=== PATIENT | male | born 1960 | race Caucasian/White ===

== ENCOUNTER → 2025-02-24 | Outpatient (CLI) | payer OTHER ==
[2025-02-24 14:58] LABS: Basophils # (A) 0.05 X 10*3/uL (0.00-0.10); Basophils % (A) 0.9 %; Eosinophils # (A) 0 X 10*3/uL (0.04-0.35); Eosinophils % (A) 0 %; HGB 14.8 g/dL (13.0-17.0); Lymphocytes # (A) 1.71 X 10*3/uL (0.90-5.00); Lymphocytes % (A) 30.4 %; MCH 30.1 pg (27.0-32.0); MCHC 33.6 g/dL (32.0-37.0); MCV 89.6 FL (80.0-97.0); Mean Platelet Volume 9.6 FL (9.5-12.2); Monocytes # (A) 0.52 X 10*3/uL (0.20-1.00); Monocytes % (A) 9.2 %; NRBC Per 100 WBC 0 X 10*3/uL (0.00-0.01); Neutrophils # (A) 3.34 X 10*3/uL (1.80-7.70); Neutrophils % (A) 59.3 %; Platelet Count 299 X 10*3/uL (140-440); RBC 4.91 X 10*6/uL (4.40-5.60); RDW 11.7 % (11.5-14.5); WBC 5.63 X 10*3/uL (4.50-10.00)
[2025-02-24 16:07] LABS: LDL Cholesterol,Calculated 115.7 mg/dL (0.0-131.0); Prostate Specific Antigen 7.57 ng/mL (0.000-4.500); VLDL Calculation 18.42 mg/dL (5.00-40.00)
[2025-02-24 16:31] LABS: ALT 18 U/L (10-49); AST 25 U/L (14-35); Albumin 4.4 g/dL (3.8-4.9); Alkaline Phosphatase 60 U/L (41-126); BUN/Creat Ratio 15.08 Ratio (12.00-20.00); Blood Urea Nitrogen 19.6 mg/dL (9.0-27.0); Calcium 9.5 mg/dL (8.7-10.3); Carbon Dioxide 25.7 mmol/L (21.6-31.8); Chloride 109 mmol/L (96-109); Globulin 2.1 g/dL (1.6-3.3); Glucose 98 mg/dL (70-110); Potassium 4.1 mmol/L (3.5-5.5); Sodium 150 mmol/L (135-145); Total Bilirubin 2.5 mg/dL (0.3-1.2); Total Protein 6.5 g/dL (6.2-8.2)
== END | disposition home or self-care (01) ==
LOC: LABWHC1 10:59
PROVIDERS: ATTEND Internal Medicine Critical Care Medicine
DX: Z00.00 Encounter for general adult medical examination without abnormal findings (principal); R63.4 Abnormal weight loss; R13.10 Dysphagia, unspecified
CPT/HCPCS: 36415; 80053; 80061; 82306; 82378; 83036; 84153; 84403; 85025

== ENCOUNTER → 2025-03-01 | Outpatient (CLI) | payer OTHER ==
--- NOTE | 2025-03-02 09:09 | CT ---
EXAMINATION TYPE: CT abdomen pelvis w con DATE OF EXAM: 03/01/2025 COMPARISON: NONE CLINICAL INDICATION: Male, 64 years old with history of R63.4 ABNORMAL WEIGHT LOSS, 40 + weightloss x 2 months. Abdominal discomfort, TECHNIQUE: CT scan of the abdomen and pelvis is performed with IV Contrast, patient injected with 100 ml mL of I sovue 300., (none if empty) Oral contrast used: with Oral Contrast (none if empty) CT DLP: 514.8 mGycm, Automated exposure control for dose reduction was used. FINDINGS: LUNG BASES: No significant abnormality is appreciated. LIVER/GB: No significant abnormality is appreciated. PANCREAS: No significant abnormality is seen. SPLEEN: No significant abnormality is seen. ADRENALS: No significant abnormality is seen. KIDNEYS: No significant abnormality is seen. BOWEL: Oral contrast reaches level of the transverse colon. No abnormal small or large bowel dilatati on is seen. Normal contrast-filled appendix. PROSTATE/SEMINAL VESICLES: Enlarged prostate consistent with BPH is present. LYMPH NODES: No greater than 1cm abdominal or pelvic lymph nodes are appreciated. OSSEOUS STRUCTURES: Slight grade 1 retrolisthesis of L2 on L3, L3 on L4, and L4 on L5. Multilevel mod erate disc space narrowing is present. OTHER: Tortuous course to the abdominal aorta with mild peripheral calcified plaque. IMPRESSION: No significant acute finding is seen to account for patient's clinical symptoms of abdom inal discomfort. No suspicious mass or adenopathy is seen to suggest malignant neoplasm. Enlarged pro state consistent with BPH is present [facility], , 03/02/2025 9:07 AM
== END | disposition home or self-care (01) ==
LOC: RADCTMAIN 15:07
PROVIDERS: ATTEND Internal Medicine Critical Care Medicine
DX: N40.0 Benign prostatic hyperplasia without lower urinary tract symptoms (principal); R63.4 Abnormal weight loss
CPT/HCPCS: 74177; Q9967

== ENCOUNTER → 2025-03-05 | Outpatient (CLI) | payer OTHER | END | disposition home or self-care (01) | LOC: LABWHC1 13:57 | PROVIDERS: ATTEND Urology | DX: R97.20 Elevated prostate specific antigen [PSA] (principal) | CPT/HCPCS: 36415; 84153 ==

== ENCOUNTER 2025-03-17 07:54 | Day surgery (SDC) | payer OTHER ==
[~2025-03-17 07:54] MED LIST: LIDOCAINE 1% (10MG/ML) FOR IV START INTRADERMA PRN
[2025-03-17] MEDS: IV FLUID CONTINUATION 1,000 ML IV ONE (08:15)
[2025-03-17 08:25] VITALS: RESP 16; TEMP 97.6
[2025-03-17] MEDS: LACTATED RINGERS 1,000 ML IV SCH (08:28)
[2025-03-17] MEDS ORDERED: LIDOCAINE 2% (PF) 20 MG/ML 5 ML VIAL ONE (08:40)
[2025-03-17] MEDS ORDERED: PROPOFOL 10 MG/ML 20 ML VIAL IV ONE (08:40)
--- NOTE | 2025-03-17 09:09 | P.PCN ---
Date of Procedure: 03/17/25 Procedure(s) Performed: Brief history: Patient is a pleasant 64-year-old white male scheduled for an elective upper endoscopy as well as colonoscopy as a part of evaluation of progressive dysphagia to solids for the last 3 months duration associated with weight loss of almost 50 pounds. He is also scheduled for colonoscopy as a part of screening for colorectal neoplasia Procedure performed: Esophagogastroduodenoscopy with biopsy Colonoscopy with biopsy Preoperative diagnosis: Progressive dysphagia to solids for 3 months duration associate with weight loss of 50 pound Screening for colon cancer Anesthesia: MAC Procedure: After informed consent was obtained from the patient was brought into the endoscopy unit and IV sedation was administered by anesthesia under continuous monitoring. Initially upper endoscopy was done. The Olympus GF 160 video endoscope was inserted inserted into the mouth and esophagus intubated without any difficulty and was gradually advanced into the distal esophagus where there was an ulcerated circumferential mass identified with significant luminal narrowing. The scope was gently advanced into the stomach and duodenum and carefully examined. The bulb and second part of the duodenum appeared normal. The scope was then withdrawn into the stomach adequately insufflated with air and upon careful examination the antrum and body, cardia and fundus appeared normal. The scope was then withdrawn into the esophagus. The GE junction was located at 41 cm to the incisors. There was a circumferential ulcerated mass noted in the distal esophagus extending from 36 to 41 cm from the incisors and multiple biopsies were done from this area. Rest of the esophagus appeared normal. Patient tolerated the procedure well. At this time the patient continued to remain sedation. Initial digital rectal examination was normal. Olympus CF 160 video colonoscope was then inserted into the rectum and gradually advanced to the cecum without any difficulty. Careful examination was performed as the scope was gradually being withdrawn. The prep was excellent. The cecum had a 3 mm polyp that was removed by cold biopsy. Rest of the, ascending colon, transverse colon, descending colon, sigmoid colon and rectum appeared normal. In the rectum there was a 3 mm polyp that was removed by cold biopsy. Retroflexion was performed in the rectum and no lesions were noted. Patient tolerated the procedure well. Impression: 1. Upper endoscopy revealed circumferential ulcerated distal esophageal mass extending from 36 to 41 cm from the incisors with significant luminal narrowing s/p multiple biopsies 2. Colonoscopy revealed a 3 mm cecal polyp and a 4 mm rectal polyp that was removed by cold biopsy. Recommendations: Findings of this examination were discussed with the patient as well as his family. He was advised to follow with the biopsy results. Follow-up in the office in 4 to 5 days.
[2025-03-17 09:39] VITALS: BP 122/75; PULSE 72
== END 2025-03-17 10:39 | disposition home or self-care (01) ==
LOC: ORWHC2ENDO 07:54
PROVIDERS: ATTEND Internal Medicine Gastroenterology
DX: C15.5 Malignant neoplasm of lower third of esophagus (principal); Z12.11 Encounter for screening for malignant neoplasm of colon; K62.1 Rectal polyp; K51.40 Inflammatory polyps of colon without complications; Z79.899 Other long term (current) drug therapy; Z88.0 Allergy status to penicillin
CPT/HCPCS: 88305; 88342; 45380; 43239; J2704; J2003; 88341

== ENCOUNTER 2025-03-21 05:59 | Inpatient (IN) | payer OTHER ==
--- NOTE | 2025-03-21 06:31 | ED ---
General Adult HPI - General Chief complaint: ENT Stated complaint: Difficulty swallowing, not eating Time Seen by Provider: 03/21/25 06:10 Source: patient, RN notes reviewed, old records reviewed Mode of arrival: ambulatory Limitations: no limitations - History of Present Illness Initial comments: Patient is a 64-year-old male who presents emergency department for evaluation for esophageal mass. Recently had EGD and colonoscopy done by Dr. Banegas outpatient which revealed an esophageal mass. Was biopsied which showed an adenocarcinoma. Patient has been following up with Dr. Maldonado due to recent dysphagia for the last 3 to 4 months as well as approximately 50 pounds of weight loss. Cancer is a recent diagnosis. Patient is aware of his diagnosis as his brother was contacted by Dr. Maldonado last night. He denies any abdominal pain, chest pain, shortness of breath. He has no other acute complaints at this time. No significant past medical history. He endorses progressively worsening dysphagia and odynophagia over the last few months with worsening especially lately which is what prompted him to follow-up with Dr. Maldonado for evaluation. - Related Data Home Medications Medication Instructions Recorded Confirmed Omeprazole Magnesium [PriLOSEC OTC] 20 mg PO DAILY 03/11/25 03/21/25 Allergies Allergy/AdvReac Type Severity Reaction Status Date / Time Penicillins Allergy Rash/Hives Verified 03/21/25 09:01 Review of Systems ROS Statement: Those systems with pertinent positive or pertinent negative responses have been documented in the HPI. Review of Systems: CONST: Denies fever EYES: Denies blurry vision ENT: Denies nasal congestion C/V: Denies Chest pain RESP: Denies shortness of breath GI: Denies abdominal pain : Denies dysuria SKIN: Denies rash. MSK: Denies joint pain. NEURO: Denies headache ROS Other: All systems not noted in ROS Statement are negative. Past Medical History Additional Past Medical History / Comment(s): PSA elevated; pt. c/o 48 lb weight loss x 2-3 months, dysphagia, weakness, & fatigue. History of Any Multi-Drug Resistant Organisms: None Reported Additional Past Surgical History / Comment(s): left cheek surgery age 21's Past Anesthesia/Blood Transfusion Reactions: No Reported Reaction Past Psychological History: No Psychological Hx Reported Smoking Status: Never smoker Past Alcohol Use History: None Reported Past Drug Use History: None Reported - Past Family History Father Additional Family Medical History / Comment(s): pancreatic cancer General Exam - General Exam Comments Initial Comments: General: Clinically appears somewhat malnourished, as he has lost significant amount of weight over the last few months. HEAD: Normal with no signs of head trauma. EYES: EOMI ENT: Hearing grossly intact, normal oropharynx. Mildly dry mucous membranes RESPIRATORY: Clear breath sounds bilaterally. No wheezes, rales, or rhonchi. C/V: Regular rate and rhythm. S1 and S2 auscultated, no edema, peripheral pulses 2+ and intact throughout ABD: Abd is soft, nontender, nondistended EXT: Normal range of motion, no obvious deformity SKIN: No rashes or lesions observed on exposed skin. NEURO: Alert and oriented x 4. Limitations: no limitations Course Vital Signs 03/21/25 03/21/25 03/21/25 06:02 10:13 13:05 Temperature 97.9 F 98.4 F Pulse Rate 83 69 72 Respiratory 18 18 16 Rate Blood Pressure 124/84 118/68 123/69 O2 Sat by Pulse 98 96 98 Oximetry 03/21/25 03/21/25 03/22/25 14:56 21:07 04:26 Temperature 98.2 F 98.3 F 98.2 F Pulse Rate 78 64 65 Respiratory 16 17 16 Rate Blood Pressure 108/72 113/72 132/75 O2 Sat by Pulse 98 99 99 Oximetry Medical Decision Making - Medical Decision Making Was pt. sent in by a medical professional or institution (, PA, PUBLIC RELATIONS SUPERVISOR, urgent care, hospital, or care home...) When possible be specific @ -Sent in by his PCP, Dr. Maldonado for admission for oncology evaluation, laboratory studies, and IV fluids. He has had CT imaging done outpatient as well as EGD with esophageal mass biopsies. Dr. Maldonado wants the patient admitted for evaluation by oncology and possibly later on surgery due to the severe Dysphagia and odynophagia. States he will speak with Dr. Ramos of surgery on Saturday03/22/25.. Did you speak to anyone other than the patient for history (EMS, parent, family, police, friend...)? What history was obtained from this source @ -No Did you review nursing and triage notes (agree or disagree)? Why? @ -I reviewed and agree with nursing and triage notes Were old charts reviewed (outside hosp., previous admission, EMS record, old EKG, old radiological studies, urgent care reports/EKG's, care home records)? Report findings @ -Reviewed recent biopsies results from EGD of esophageal mass which revealed invasive poorly differentiated adenocarcinoma Differential Diagnosis (chest pain, altered mental status, abdominal pain women, abdominal pain men, vaginal bleeding, weakness, fever, dyspnea, syncope, he adache, dizziness, GI bleed, back pain, seizure, CVA, palpatations, mental health, musculoskeletal)? @ -Cancer, dehydration, esophageal mass, odynophagia, severe dysphagia. This list is not all inclusive. EKG interpreted by me (3pts min.). @ -As above X-rays interpreted by me (1pt min.). @ -Chest x-ray shows no obvious acute cardiopulmonary process. CT interpreted by me (1pt min.). @ -None done U/S interpreted by me (1pt. min.). @ -None done What testing was considered but not performed or refused? (CT, X-rays, U/S, labs)? Why? @ -None What meds were considered but not given or refused? Why? @ -None Did you discuss the management of the patient with other professionals (professionals i.e. , PA, PUBLIC RELATIONS SUPERVISOR, lab, RT, psych nurse, social work manager, svp operations, teacher, sheriff's officer, classification case manager)? Give summary @ -Discussed with Dr. Khalil who accepted the admission. As stated above, discussed extensively with Dr. Maldonado patient's PCP. Due to the severe Dysphagia and odynophagia, patient will be admitted to observation. Possible surgical consultation with Dr. Ramos on Saturday, March 22, 2025. Was smoking cessation discussed for >3mins.? @ -No Was critical care preformed (if so, how long)? @ -No Were there social determinants of health that impacted care today? How? (Homelessness, low income, unemployed, alcoholism, drug addiction, transportation, low edu. Level, literacy, decrease access to med. care, care home, rehab)? @ -No Was there de-escalation of care discussed even if they declined (Discuss DNR or withdrawal of care, Hospice)? DNR status @ -No What co-morbidities impacted this encounter? (DM, HTN, Smoking, COPD, CAD, Cancer, CVA, ARF, Chemo, Hep., AIDS, mental health diagnosis, sleep apnea, morbid obesity)? @ -Recently diagnosed adenocarcinoma of the esophagus Was patient admitted / discharged? Hospital course, mention meds given and route, prescriptions, significant lab abnormalities, going to OR and other pertinent info. @ -Based on the patient's presentation and physical exam, presents with months of weight loss, as well as severe odynophagia and dysphagia. Recent biopsy does show esophageal adenocarcinoma. Was sent in by his PCP for admission for on cology evaluation due to the severe pain with swallowing as well as issues with swallowing, all of which is being become more progressively worse.. Patient does appear clinically dehydrated and malnourished, which fits as he has lost a significant mount of weight over the last few months. Patient will be admitted for IV fluid hydration, evaluation by oncology and possibly surgery after his PCP Dr. Maldonado speaks with Dr. Ramos tomorrow. Dr. Maldonado requested admission under [facility] physician [facility]. Basic labs obtained. Screening EKG shows no signs of acute ischemia. Chest x- ray was obtained and showed no obvious acute cardiopulmonary process. At this time, patient will be admitted. I spoke with Dr. Khalil who was in agreement with plan for admission. Liquid diet ordered. Undiagnosed new problem with uncertain prognosis? @ -No Drug Therapy requiring intensive monitoring for toxicity (Heparin, Nitro, Insulin, Cardizem)? @ -No Were any procedures done? @ -No Diagnosis/symptom? @ -Dysphagia and odynophagia secondary to esophageal adenocarcinoma, dehydration Acute, or Chronic, or Acute on Chronic? @ -Acute Uncomplicated (without systemic symptoms) or Complicated (systemic symptoms)? @ -Complicated Side effects of treatment? @ -No Exacerbation, Progression, or Severe Exacerbation? @ -No Poses a threat to life or bodily function? How? (Chest pain, [place], [place], pneumonia, PE, COPD, DKA, ARF, appy, cholecystitis, CVA, Diverticulitis, Homicidal, Suicidal, threat to staff... and all critical care pts) @ -Yes - Lab Data Result diagrams: 03/22/25 06:14 03/22/25 06:14 Lab Results 03/21/25 03/21/25 Range/Units 06:33 06:33 WBC 4.69 (4.50-10.00) 10*3/uL RBC 4.96 (4.40-5.60) 10*6/uL Hgb 15.4 (13.0-17.0) g/dL Hct 43.1 (39.6-50.0) % MCV 86.9 (80.0-97.0) fL MCH 31.0 (27.0-32.0) pg MCHC 35.7 (32.0-37.0) g/dL Plt Count 290 (140-440) 10*3/uL MPV 9.5 (9.5-12.2) fL Immature Gran % (Auto) 0.2 % Neutrophils % 58.4 % Lymphocytes % 30.3 % Monocytes % 9.8 % Eosinophils % 0.0 % Basophils % 1.3 % Immature Gran # 0.01 (0.00-0.04) 10*3/uL Neutrophils # 2.74 (1.80-7.70) 10*3/uL Lymphocytes # 1.42 (0.90-5.00) 10*3/uL Monocytes # 0.46 (0.20-1.00) 10*3/uL Eosinophils # 0.00 L (0.04-0.35) 10*3/uL Basophils # 0.06 (0.00-0.10) 10*3/uL Sodium 142 (137-145) mmol/L Potassium 3.4 L (3.5-5.1) mmol/L Chloride 103 (98-107) mmol/L Carbon Dioxide 28 (22-30) mmol/L Anion Gap 11 mmol/L BUN 33 H (9-20) mg/dL Creatinine 1.17 (0.66-1.25) mg/dL Est GFR (CKD-EPI)AfAm 76 (>60 ml/min/1.73 sqM) Est GFR (CKD-EPI)NonAf 66 (>60 ml/min/1.73 sqM) Glucose 125 H (74-99) mg/dL Calcium 9.9 (8.4-10.2) mg/dL Magnesium 2.0 (1.6-2.3) mg/dL Total Bilirubin 2.8 H (0.2-1.3) mg/dL AST 22 (17-59) U/L ALT 17 (4-49) U/L Alkaline Phosphatase 58 (38-126) U/L Total Protein 6.9 (6.3-8.2) g/dL Albumin 4.3 (3.5-5.0) g/dL - EKG Data -: EKG Interpreted by Me EKG Comments: 12-lead Electrocardiogram Interpretation Note EKG was reviewed and interpreted by myself. 12-lead ECG performed at 0627 is interpreted by me as revealing normal sinus rhythm at a rate of 72 beats per minute. [place] is leftward deviated. [place] interval is 163 ms, QRS duration is 98 ms, QTc is 383 ms.. There were no ST or T wave abnormalities to suggest brennan cardial ischemia or injury. R wave progression across the precordium was satisfactory. By my interpretation this EKG is non-diagnostic for acute ischemia. Disposition Clinical Impression: Dysphagia, Odynophagia, Esophageal adenocarcinoma, Hypokalemia Disposition: ADMITTED IP TO THIS HOSP Condition: Stable Time of Disposition: 06:34
[2025-03-21] MEDS ORDERED: NALOXONE 0.4 MG/ML 1 ML VIAL IV PRN (06:36)
[2025-03-21] MEDS: SODIUM CHLORIDE 0.9% 1,000 ML IV STA (06:37)
[2025-03-21 06:44] LABS: Basophils # (A) 0.06 10*3/uL (0.00-0.10); Basophils % (A) 1.3 %; HCT 43.1 % (39.6-50.0); HGB 15.4 g/dL (13.0-17.0); Lymphocytes # (A) 1.42 10*3/uL (0.90-5.00); Lymphocytes % (A) 30.3 %; MCHC 35.7 g/dL (32.0-37.0); MCV 86.9 fL (80.0-97.0); Mean Platelet Volume 9.5 fL (9.5-12.2); Monocytes # (A) 0.46 10*3/uL (0.20-1.00); Monocytes % (A) 9.8 %; Neutrophils # (A) 2.74 10*3/uL (1.80-7.70); Neutrophils % (A) 58.4 %; Platelet Count 290 10*3/uL (140-440); RBC 4.96 10*6/uL (4.40-5.60); RDW 11.9 % (11.5-14.5); WBC 4.69 10*3/uL (4.50-10.00)
[2025-03-21 06:58] LABS: ALT 17 U/L (4-49); AST 22 U/L (17-59); African American GFR (CKD) 76 (>60 ml/min/1.73 sqM); Albumin 4.3 g/dL (3.5-5.0); Alkaline Phosphatase 58 U/L (38-126); Anion Gap 11 mmol/L; Blood Urea Nitrogen 33 mg/dL (9-20); Calcium 9.9 mg/dL (8.4-10.2); Carbon Dioxide 28 mmol/L (22-30); Chloride 103 mmol/L (98-107); Glucose 125 mg/dL (74-99); Non-African American GFR(CKD) 66 (>60 ml/min/1.73 sqM); Potassium 3.4 mmol/L (3.5-5.1); Sodium 142 mmol/L (137-145); Total Bilirubin 2.8 mg/dL (0.2-1.3); Total Protein 6.9 g/dL (6.3-8.2)
--- NOTE | 2025-03-21 07:02 | XR ---
EXAMINATION TYPE: XR chest 1V portable DATE OF EXAM: 03/21/2025 6:53 AM COMPARISON: Chest radiographs from 02/24/2025 TECHNIQUE: XR chest 1V portable Portable AP radiograph of the chest. CLINICAL INDICATION:Male, 64 years old with history of esophageal mass; FINDINGS: Lungs/Pleura: There is no evidence of pleural effusion, focal consolidation, or pneumothorax. Pulmonary vascularity: Unremarkable. Heart/mediastinum: Cardiomediastinal silhouette is unremarkable. Musculoskeletal: No acute osseous pathology. IMPRESSION: No acute cardiopulmonary disease/process. [facility], , 03/21/2025 7:00 AM
[2025-03-21] MEDS: POTASSIUM BICARBONATE/CIT AC 20 MEQ TABLET.EFF PO ONE (07:33)
[2025-03-21] MEDS: POTASSIUM CHLORIDE 20 MEQ in WATER FOR INJECTION 1 100ML.BAG IVPB STA (07:53)
--- NOTE | 2025-03-21 11:51 | P.HPIM ---
History of Present Illness H&P Date: 03/21/25 64 year old M with PMH of esophageal adenocarcinoma presents to the ED for failure to thrive. He reports losing around 70 pounds over the past 3 months. He reports difficulty swallowing. He denies any headache, LE edema, N/V, fever or chills, cough, chest pain, SOB, palpitations, changes in urination or bowel habits. He is agreeable for PEG tube. In the ED he underwent extensive evaluation. BP 124/84, HR 83, T 97.9F, RR 18, 98% on RA. CBC, CMP significant for K 3.4, BUN 33, glu 125, T. Bili 2.8. Mag 2. EKG NSR. CXR no acute process. Patient is admitted for further workup and management. General: no distress, appears at stated age Derm: warm, dry Head: atraumatic, normocephalic, symmetric Mouth: no lip lesion, mucus membranes moist Cardiovascular: S1 S2 reg. No murmur. Lungs: Clear to auscultation bilaterally, no accessory muscle use Ext: no gross muscle atrophy, no edema, no contractures Neuro: No focal neurologic deficits. Psych: Alert and oriented. Based on my assessment of this patient, this patient meets a high complexity level of care. Dysphagia and FTT secondary to esophageal adenoCA: Aspiration precautions and elevated HOB. Oncology and Surgery consulted. Hypokalemia: KCl 20 meq IV x 1. Prerenal azotemia likely due to dehydration: Start NS at 75 cc/hr. Hyperbilirubinemia: Unknow etiology. Repeat CMP in the AM. CODE STATUS: FULL CODE DVT Prophylaxis: SCD GI Prophylaxis: Designated medical POA if patient is not able to make medical decisions for themselves: Brother. I have reviewed the following validation consultant notes: ED note. I have reviewed the results of the following tests: As above. I have ordered the following tests: As above. I have discussed the care of this patient with the following independent historian: Family at bedside. I have independently interpreted the following test below: EKG. I have discussed the management of this patient with the following physician: Dr. Maldonado. Past Medical History Additional Past Medical History / Comment(s): PSA elevated; pt. c/o 48 lb weight loss x 2-3 months, dysphagia, weakness, & fatigue. History of Any Multi-Drug Resistant Organisms: None Reported Additional Past Surgical History / Comment(s): left cheek surgery age 21's Past Anesthesia/Blood Transfusion Reactions: No Reported Reaction Past Psychological History: No Psychological Hx Reported Smoking Status: Never smoker Past Alcohol Use History: None Reported Past Drug Use History: None Reported Medications and Allergies Home Medications Medication Instructions Recorded Confirmed Type Omeprazole Magnesium [PriLOSEC OTC] 20 mg PO DAILY 03/11/25 03/21/25 History Allergies Allergy/AdvReac Type Severity Reaction Status Date / Time Penicillins Allergy Rash/Hives Verified 03/21/25 09:01 Physical Exam Vitals: Vital Signs Temp Pulse Resp BP Pulse Ox 03/21/25 10:13 98.4 F 69 18 118/68 96 03/21/25 06:02 97.9 F 83 18 124/84 98 Intake and Output 03/20/25 03/21/25 03/21/25 22:59 06:59 14:59 Other: Weight 58.967 kg Results CBC & Chem 7: 03/21/25 06:33 03/21/25 06:33 Labs: Abnormal Lab Results - Last 24 Hours (Table) 03/21/25 03/21/25 Range/Units 06:33 06:33 Eosinophils # 0.00 L (0.04-0.35) 10*3/uL Potassium 3.4 L (3.5-5.1) mmol/L BUN 33 H (9-20) mg/dL Glucose 125 H (74-99) mg/dL Total Bilirubin 2.8 H (0.2-1.3) mg/dL
--- NOTE | 2025-03-21 14:46 | P.CONS ---
History of Present Illness - Reason for Consult Consult date: 03/21/25 Esophageal cancer - Chief Complaint Weakness - History of Present Illness Mr. Aguiar is a 64-year-old gentleman with recent diagnosis of esophageal adenocarcinoma presenting with failure to thrive. Prior to admission, he had outpatient GI evaluation for progressive dysphagia and 50 to 70 pound weight loss over the past [address] abdomen pelvis with contrast on 03/01/2025 noted no suspicious findings. EGD/colonoscopy performed on 03/17/2025 noted ulcerated distal esophageal mass extending from 36 to 41 cm from the incisors with significant luminal narrowing along with 3 mm cecal polyp and 4 mm rectal polyp removed by cold biopsy. Biopsy of the esophageal mass revealed invasive poorly differentiated adenocarcinoma positive for CK7 and CDX2. HER2 IHC was 2+ with FISH pending. Cecal polyp was consistent with inflammatory polyp negative for dysplasia or malignancy and rectal polyp revealed hyperplastic polyp. Due to progressive dysphagia and weakness, he presented to the ED for additional evaluation. In the ED, vital signs were stable and was afebrile. CBC revealed no cytopenias with CMP revealing potassium 3.4, creatinine 1.17, total bilirubin 2.8. CEA on 02/24/2025 was 5.1. Of note, PSA was 7.57 on 02/24/2025 and was 6.68 when repeated on 03/05/2025. CT abdomen/pelvis did note enlarged prostate. Chest x-ray revealed no acute cardiopulmonary process. He received IV potassium and was started on maintenance normal saline at 75 cc/h and was admitted to internal medicine for additional management. General surgery has been consulted for PEG tube placement. He denies any fevers, chills, night sweats, lymphadenopathy, or anorexia. He has had progressive dysphagia with solids as well as with liquids. 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 He denies any current or prior cigarette smoking, alcohol, or illicit drug use. His fa ther had pancreatic cancer diagnosed at the age of 57 and denies any other known medical history. Review of Systems 14 point review of systems was conducted with pertinent positives and negatives as noted per HPI Past Medical History Additional Past Medical History / Comment(s): PSA elevated; pt. c/o 48 lb weight loss x 2-3 months, dysphagia, weakness, & fatigue. History of Any Multi-Drug Resistant Organisms: None Reported Additional Past Surgical History / Comment(s): left cheek surgery age 21's Past Anesthesia/Blood Transfusion Reactions: No Reported Reaction Past Psychological History: No Psychological Hx Reported Smoking Status: Never smoker Past Alcohol Use History: None Reported Past Drug Use History: None Reported Medications and Allergies Home Medications Medication Instructions Recorded Confirmed Type Omeprazole Magnesium [PriLOSEC OTC] 20 mg PO DAILY 03/11/25 03/21/25 History Allergies Allergy/AdvReac Type Severity Reaction Status Date / Time Penicillins Allergy Rash/Hives Verified 03/21/25 09:01 Physical Exam Vitals: Vital Signs Temp Pulse Resp BP Pulse Ox 03/21/25 10:13 98.4 F 69 18 118/68 96 03/21/25 06:02 97.9 F 83 18 124/84 98 Intake and Output 03/20/25 03/21/25 03/21/25 22:59 06:59 14:59 Other: Weight 58.967 kg - Constitutional General appearance: cooperative, no acute distress - EENT Eyes: EOMI - Respiratory Respiratory: bilateral: CTA - Cardiovascular Rhythm: regular Heart sounds: normal: S1, S2 - Gastrointestinal General gastrointestinal: no distended, soft, no tenderness - Integumentary Integumentary: no pale, no rash - Neurologic Neurologic: CNII-XII intact Results CBC & Chem 7: 03/21/25 06:33 03/21/25 06:33 Labs: Abnormal Lab Results - Last 24 Hours (Table) 03/21/25 03/21/25 Range/Units 06:33 06:33 Eosinophils # 0.00 L (0.04-0.35) 10*3/uL Potassium 3.4 L (3.5-5.1) mmol/L BUN 33 H (9-20) mg/dL Glucose 125 H (74-99) mg/dL Total Bilirubin 2.8 H (0.2-1.3) mg/dL Assessment and Plan (1) Esophageal adenocarcinoma Current Visit: Yes Status: Acute Priority: High Code(s): C15.9 - MALIGNANT NEOPLASM OF ESOPHAGUS, UNSPECIFIED SNOMED Code(s): 607116449 Plan: #Esophageal adenocarcinoma - Noted to have progressive dysphagia and 50 to 70 pound weight loss over the past 3 months - CT abdomen/pelvis revealed enlarged prostate with no other acute findings to explain clinical presentation - EGD/colonoscopy on 03/17/2025 revealed ulcerated distal esophageal mass consistent with poorly differentiated adenocarcinoma - He is having progressive weakness due to dysphagia - Agree with PEG tube placement to help optimize nutrition - Discussed obtaining outpatient PET/CT for staging purposes, which is scheduled for April 01, 2025 - Our office will see if we can help move up the date of the PET/CT - Based off of results of PET/CT, further treatment options could then be determined - Biopsy can be sent for NGS/PD-L1 - As he has a first-degree relative with his father having had pancreatic cancer, he does qualify for genetic testing. This was discussed on today's visit with the implications of genetic testing also discussed. Following discussion, he was agreeable to proceed with testing - We will arrange for germline genetic testing on outpatient follow-up in the clinic Mynor Rehman MD
--- NOTE | 2025-03-21 20:18 | P.CNPUL ---
History of Present Illness Consult date: 03/21/25 Reason for consult: dyspnea History of present illness: This is a 64-year-old male patient for dehydration. The patient has a recent diagnosis of esophageal adenocarcinoma. The patient was unable to take any form of oral solid or liquid and the patient was hospitalized due to failure to thrive. Noted this patient has been having progressive worsening in dyspnea along with weight loss over the past 3 months. CAT scan of the abdomen and pe lvis showed no suspicious abnormalities. EGD showed a ulcerated distal esophageal mass around 36 to 41 cm from the incisors with significant luminal narrowing and the biopsy was consistent with poorly differentiated adenocarcinoma. CK7, CDX2 were positive. CEA level is at 5.1. The patient has no other medical problems or comorbidities. No reported aspiration. No chest pain. He is feeling better after receiving IV fluids. The white cell count is 4.6 with a hemoglobin 15.1 and platelet count of 290. BUN 33 with a creatinine of 1.1. Sodium level 142 and glucose levels at 125. The patient is scheduled to undergo a PET/CT on 04/01/2025. Awaiting oncology consultation. Will need a surgical consultation to secure a feeding tube and this will largely depend on the potential for surgical plan at a later stage post completing his staging. Review of Systems Constitutional: Reports fatigue, Reports poor appetite, Reports weight loss Eyes: denies as per HPI, denies blurred vision, denies bulging eye, denies decreased vision, denies diplopia, denies discharge, denies dry eye, denies irritation, denies itching, denies pain, denies photophobia, denies loss of peripheral vision, denies loss of vision, denies tunnel vision/blind spots Ears: deny: decreased hearing, ear discharge, earache, tinnitus Breasts: absent: as per HPI, gynecomastia Cardiovascular: Reports as per HPI Respiratory: Reports as per HPI Gastrointestinal: Reports dyspepsia, Reports loss of appetite Genitourinary: Reports as per HPI Musculoskeletal: Reports as per HPI Musculoskeletal: absent: ankle pain, ankle stiffness, ankle swelling, as per HPI, elbow pain, elbow stiffness, elbow swelling, foot pain, foot stiffness, foot swelling, hand pain, hand stiffness, hand swelling, hip pain, hip stiffness, hip swelling, knee pain, knee stiffness, knee swelling, shoulder pain, shoulder stiffness, shoulder swelling, wrist pain, wrist stiffness, wrist swelling Integumentary: Reports as per HPI Neurological: Reports as per HPI Psychiatric: Reports as per HPI Endocrine: Reports as per HPI Hematologic/Lymphatic: Reports as per HPI Allergic/Immunologic: Reports as per HPI Past Medical History Additional Past Medical History / Comment(s): PSA elevated; pt. c/o 48 lb weight loss x 2-3 months, dysphagia, weakness, & fatigue. History of Any Multi-Drug Resistant Organisms: None Reported Additional Past Surgical History / Comment(s): left cheek surgery age 21's Past Anesthesia/Blood Transfusion Reactions: No Reported Reaction Past Psychological History: No Psychological Hx Reported Smoking Status: Never smoker Past Alcohol Use History: None Reported Past Drug Use History: None Reported Medications and Allergies Home Medications Medication Instructions Recorded Confirmed Type Omeprazole Magnesium [PriLOSEC OTC] 20 mg PO DAILY 03/11/25 03/21/25 History Allergies Allergy/AdvReac Type Severity Reaction Status Date / Time Penicillins Allergy Rash/Hives Verified 03/21/25 09:01 Physical Exam Vitals: Vital Signs Temp Pulse Resp BP Pulse Ox 03/21/25 06:02 97.9 F 83 18 124/84 98 Intake and Output 03/20/25 03/21/25 03/21/25 22:59 06:59 14:59 Other: Weight 58.967 kg Results The patient appeared well nourished and normally developed. Vital signs as documented. Head exam is unremarkable. No scleral icterus or corneal arcus noted. Neck is without jugular venous distension, thyromegaly, or carotid bruits. Carotid upstrokes are brisk bilaterally. Lungs are clear to auscultation and percussion. Cardiac exam reveals the PMI to be normally sized and situated. Rhythm is regular. First and second heart sounds normal. No murmurs, rubs or gallops. Abdominal exam reveals normal bowel sounds, no masses, no organomegaly and no aortic enlargement. Extremities are nonedematous and both femoral and pedal pulses are normal. Examination of the skin revealed no evidence of significant rashes, suspicious appearing nevi or other concerning lesions. Neurologically, the patient is awake and alert and the patient does not have any focal neurological deficit. Cranial nerves are essentially intact. - Laboratory Findings CBC and BMP: 03/21/25 06:33 03/21/25 06:33 Abnormal lab findings: Abnormal Labs 03/21/25 03/21/25 06:33 06:33 Eosinophils # 0.00 L Potassium 3.4 L BUN 33 H Glucose 125 H Total Bilirubin 2.8 H Assessment and Plan Plan: Esophageal adenocarcinoma with secondary dysphagia and failure to thrive. The patient was hospitalized accordingly as the patient was rapidly losing weight and he was getting progressively more dehydrated, unable to keep in any form of solids or liquids. He has lost approximately 50 to 70 pounds over the past 3 months. Staging is in progress. PET scan will be needed as this is scheduled to be done on 04/01/2025. Patient may benefit from a feeding tube, pressure to be a J-tube specially if surgery on the distal esophagus on the stomach is being contemplated at a later stage. Dysphagia secondary to above BPH Rapid weight loss secondary to above Plan Continue fluids Oncology consultation General Surgical consultation Outpatient PET/CT Biopsy to be sent for NGS and PD-L1 analysis Modes of treatment will be discussed once the patient is fully staged.
[2025-03-22 05:47] LABS: Appearance,Urine Cloudy (Clear); Bilirubin,Urine Negative (Negative); Blood,Urine Negative (Negative); Color,Urine Yellow; Glucose,Urine (UA) Negative (Negative); Ketones,Urine 1+ (Negative); Leukocyte Esterase,Urine Negative (Negative); Mucus,Urine Many /hpf; Nitrite,Urine Negative (Negative); Protein,Urine Trace (Negative); RBC,Urine 2 /hpf (0-5); Specific Gravity,Urine 1.028 (1.001-1.035); Urobilinogen,Urine <2.0 mg/dL (<2.0); WBC,Urine 2 /hpf (0-5)
[2025-03-22] MEDS ORDERED: RX INFO: IV CONTRAST WAS GIVEN 1 EACH MISC MISCELLANE PRN (08:01)
[2025-03-22] MEDS: D5-0.45% NACL WITH KCL 20MEQ/L 1,000 ML IV SCH (09:47)
[2025-03-22 11:07] LABS: ALT 16 U/L (10-49); AST 18 U/L (14-35); Albumin 4.1 g/dL (3.8-4.9); Albumin/Globulin Ratio 2.05 Ratio (1.60-3.17); Alkaline Phosphatase 50 U/L (41-126); BUN/Creat Ratio 21.58 Ratio (12.00-20.00); Blood Urea Nitrogen 25.9 mg/dL (9.0-27.0); Calcium 9.4 mg/dL (8.7-10.3); Carbon Dioxide 28.7 mmol/L (21.6-31.8); Chloride 106 mmol/L (96-109); Glucose 109 mg/dL (70-110); Potassium 4.4 mmol/L (3.5-5.5); Sodium 145 mmol/L (135-145); Total Bilirubin 1.8 mg/dL (0.3-1.2); Total Protein 6.1 g/dL (6.2-8.2)
[2025-03-22 11:34] LABS: Basophils # (A) 0.02 X 10*3/uL (0.00-0.10); Basophils % (A) 0.4 %; Eosinophils # (A) 0 X 10*3/uL (0.04-0.35); Eosinophils % (A) 0 %; HCT 42.6 % (39.6-50.0); HGB 14.5 g/dL (13.0-17.0); Lymphocytes # (A) 1.59 X 10*3/uL (0.90-5.00); Lymphocytes % (A) 35.4 %; MCH 30.7 pg (27.0-32.0); MCV 90.1 FL (80.0-97.0); Mean Platelet Volume 9.8 FL (9.5-12.2); Monocytes # (A) 0.49 X 10*3/uL (0.20-1.00); Monocytes % (A) 10.9 %; NRBC Per 100 WBC 0 X 10*3/uL (0.00-0.01); Neutrophils # (A) 2.38 X 10*3/uL (1.80-7.70); Neutrophils % (A) 53.1 %; Platelet Count 286 X 10*3/uL (140-440); RBC 4.73 X 10*6/uL (4.40-5.60); WBC 4.49 X 10*3/uL (4.50-10.00)
--- NOTE | 2025-03-22 11:37 | P.GSCN ---
History of Present Illness Consult date: 03/22/25 Reason for Consult: Malnutrition History of present illness: 64-year-old male presents with progressive dysphagia. Patient unable to tolerate any solids and most liquids are not passing well. Patient was diagnosed about a week ago with a obstructing esophageal tumor. This was present over a span of 5 cm. Scope was able to be passed beyond the tumor. Biopsies are showing poorly differentiated adenocarcinoma. Metastatic workup is pending. He apparently has a PET scan ordered on April 01. He has not seen oncology or radiation oncology thus far as an outpatient however oncology did see the patient yesterday after his admission. Patient has had a significant weight loss of approximately 40 to 50 pounds over the last [address] abdomen pelvis was performed earlier this month showing no definite abnormalities. CT chest being performed today and those results are pending. We were consulted for PEG tube placement. Review of Systems The patient denies any acute changes in vision or hearing, no shortness of breath, no dysuria or hematuria, no headache, no runny nose, no rectal bleeding or melena, no unexplained weight loss Past Medical History Additional Past Medical History / Comment(s): PSA elevated; pt. c/o 48 lb weight loss x 2-3 months, dysphagia, weakness, & fatigue. History of Any Multi-Drug Resistant Organisms: None Reported Additional Past Surgical History / Comment(s): left cheek surgery age 21's Past Anesthesia/Blood Transfusion Reactions: No Reported Reaction Past Psychological History: No Psychological Hx Reported Smoking Status: Never smoker Past Alcohol Use History: None Reported Past Drug Use History: None Reported Medications and Allergies Home Medications Medication Instructions Recorded Confirmed Type Omeprazole Magnesium [PriLOSEC OTC] 20 mg PO DAILY 03/11/25 03/21/25 History Allergies Allergy/AdvReac Type Severity Reaction Status Date / Time Penicillins Allergy Rash/Hives Verified 03/21/25 09:01 Surgical - Exam Vital Signs Temp Pulse Resp BP Pulse Ox 97.9 F 83 18 124/84 98 03/21/25 06:02 03/21/25 06:02 03/21/25 06:02 03/21/25 06:02 03/21/25 06:02 Physical exam: General: Well-developed, well-nourished HEENT: Normocephalic, sclerae nonicteric Abdomen: Nontender, nondistended Extremities: No edema Neuro: Alert and oriented Results - Labs 03/21/25 06:33 03/22/25 06:14 Abnormal Lab Results - Last 24 Hours (Table) 03/22/25 03/22/25 Range/Units 04:39 06:14 BUN/Creatinine Ratio 21.58 H (12.00-20.00) Ratio Total Bilirubin 1.8 H (0.3-1.2) mg/dL Total Protein 6.1 L (6.2-8.2) g/dL Urine Protein Trace H (Negative) Urine Ketones 1+ H (Negative) Urine Mucus Many H (None) /hpf Diabetes panel 03/22/25 Range/Units 06:14 Sodium 145 (135-145) mmol/L Potassium 4.4 (3.5-5.5) mmol/L Chloride 106 (96-109) mmol/L Carbon Dioxide 28.7 (21.6-31.8) mmol/L BUN 25.9 (9.0-27.0) mg/dL Creatinine 1.2 (0.6-1.5) mg/dL Glucose 109 (70-110) mg/dL Calcium 9.4 (8.7-10.3) mg/dL AST 18 (14-35) U/L ALT 16 (10-49) U/L Alkaline Phosphatase 50 (41-126) U/L Total Protein 6.1 L (6.2-8.2) g/dL Albumin 4.1 (3.8-4.9) g/dL Calcium panel 03/22/25 Range/Units 06:14 Calcium 9.4 (8.7-10.3) mg/dL Albumin 4.1 (3.8-4.9) g/dL Pituitary panel 03/22/25 Range/Units 06:14 Sodium 145 (135-145) mmol/L Potassium 4.4 (3.5-5.5) mmol/L Chloride 106 (96-109) mmol/L Carbon Dioxide 28.7 (21.6-31.8) mmol/L BUN 25.9 (9.0-27.0) mg/dL Creatinine 1.2 (0.6-1.5) mg/dL Glucose 109 (70-110) mg/dL Calcium 9.4 (8.7-10.3) mg/dL Adrenal panel 04/28/25 Range/Units 06:14 Sodium 145 (135-145) mmol/L Potassium 4.4 (3.5-5.5) mmol/L Chloride 106 (96-109) mmol/L Carbon Dioxide 28.7 (21.6-31.8) mmol/L BUN 25.9 (9.0-27.0) mg/dL Creatinine 1.2 (0.6-1.5) mg/dL Glucose 109 (70-110) mg/dL Calcium 9.4 (8.7-10.3) mg/dL Total Bilirubin 1.8 H (0.3-1.2) mg/dL AST 18 (14-35) U/L ALT 16 (10-49) U/L Alkaline Phosphatase 50 (41-126) U/L Total Protein 6.1 L (6.2-8.2) g/dL Albumin 4.1 (3.8-4.9) g/dL Assessment and Plan (1) Esophageal adenocarcinoma Narrative/Plan: 64-year-old male with recent findings of poorly differentiated adenocarcinoma of the distal esophagus. Discussed with patient that we would avoid PEG tube placement unless metastatic disease was encountered. Complete inpatient metastatic workup with CT chest. Await those findings. If no metastatic disease options of jejunostomy tube placement versus esophageal stent placement discussed. Risks and benefits of both procedures reviewed. Spoke with GI at [facility] who stated that they would see him on consult and discuss options of stent placement further with him. Will make final decision regarding possible inpatient transfer after CT chest results obtained. If metastatic disease identified patient would likely be candidate for PEG tube placement at that time. Current Visit: Yes Status: Acute Priority: High Code(s): C15.9 - MALIGNANT NEOPLASM OF ESOPHAGUS, UNSPECIFIED SNOMED Code(s): 057968408
--- NOTE | 2025-03-22 12:16 | CT ---
EXAMINATION TYPE: CT chest w con DATE OF EXAM: 03/22/2025 11:27 AM COMPARISON: None CLINICAL INDICATION: Male, 64 years old with history of esophageal ca; PHH, ESOPHAGEAL CA TECHNIQUE: Multiple axial images were obtained through the chest. Sagittal and coronal reformats were created for review. Contrast used:100 mL of Isovue 300 with IV Contrast (None if empty) CT DLP: 3061 mGycm, Automated exposure control for dose reduction was used. FINDINGS: The heart is normal size without pericardial effusion. Mild proximal LAD coronary artery calcificatio ns are present. Aorta normal caliber with conventional arch vessel branching anatomy. There is abnormal circumferential soft tissue thickening at the distal esophagus extending into the G E junction region and gastric cardia for a span of approximately 5 cm, refer to coronal image 40. Camille pect 2 prominent lower paraesophageal lymph nodes measuring 1.9 cm and 1.6 cm on axial images 43 and 46. No other thoracic lymphadenopathy identified. No consolidation or pleural effusion. No suspicious pulmonary nodules are seen. Visualized upper abdomen shows mild circumferential wall thickening throughout the entire stomach wit h some mucosal hyperemia. Correlation for gastritis. Gastrohepatic ligament lymphadenopathy suggested measuring up to 2.5 cm. Bones: No osseous destructive process. IMPRESSION: 1. Distal esophageal carcinoma characterized by circumferential soft tissue thickening. This may exte nd to the GE junction and questionably into the gastric cardia spanning 5 cm, coronal image 39. 2. Two enlarged lower paraesophageal lymph nodes measure up to 1.9 cm. Additional gastrohepatic ligam ent adenopathy in the upper abdomen measures up to 2.5 cm. [facility], , 03/22/2025 12:14 PM
--- NOTE | 2025-03-22 13:59 | P.DS ---
Providers Date of admission: 03/21/25 06:36 Expected date of discharge: 03/22/25 Attending physician: Billie Khalil MD Consults: 03/21/25 06:17 Consult Physician Routine Consulting Provider: Rahul Ortega Consult Reason/Comments: esophageal cancer. Dr. Maldonado Patient Do you want consulting provider notified?: Yes 03/21/25 07:21 Consult Physician Routine Consulting Provider: Des Ramos Consult Reason/Comments: PEG eval Do you want consulting provider notified?: Yes 03/21/25 07:22 Consult Physician Routine Consulting Provider: Erlinda Banegas Consult Reason/Comments: Esophageal cancer, recent biopsy Do you want consulting provider notified?: Yes, Notify in am Primary care physician: Ezra Maldonado [facility] Course: 64 year old M with PMH of esophageal adenocarcinoma presents to the ED for failure to thrive. He reports losing around 70 pounds over the past 3 months. He reports difficulty swallowing. He denies any headache, LE edema, N/V, fever or chills, cough, chest pain, SOB, palpitations, changes in urination or bowel habits. He is agreeable for PEG tube. In the ED he underwent extensive evaluation. BP 124/84, HR 83, T 97.9F, RR 18, 98% on RA. CBC, CMP significant for K 3.4, BUN 33, glu 125, T. Bili 2.8. Mag 2. EKG NSR. CXR no acute process. Patient is admitted for further workup and management. 03/22 Patient was seen and examined. No complaints. Underwent CT chest showing esophageal AC extending to the GE junction and possibly the gastric cardia spanning 5 cm with enlarged paraesophageal LAD. CBC and CMP significant for WBC 4.49, BUN/Cr 21.58, T. Bili 1.8, total protein 6.1. Discussed with Dr. Ramos and Dr. Maldonado, recommending transfer to [facility] for advanced GI evaluation for esophageal stenting. Called [facility], awaiting call back. General: no distress, appears at stated age Derm: warm, dry Head: atraumatic, normocephalic, symmetric Mouth: no lip lesion, mucus membranes moist Cardiovascular: good distal perfusion in all 4 extremities Lungs: breathing comfortably, no accessory muscle use Ext: no gross muscle atrophy, no edema, no contractures Neuro: No focal neurologic deficits. Psych: Alert and oriented. Discharge Diagnosis: Dysphagia and FTT secondary to esophageal adenoCA Hypokalemia Prerenal azotemia likely due to dehydration Hyperbilirubinemia This complex discharge took 35 minutes to complete. Patient Condition at Discharge: Stable Plan - Discharge Summary Discharge Rx Participant: Yes New Discharge Prescriptions: No Action Omeprazole Magnesium [PriLOSEC OTC] 20 mg PO DAILY Discharge Medication List Omeprazole Magnesium [PriLOSEC OTC] 20 mg PO DAILY 03/11/25 [History] Follow up Appointment(s)/Referral(s): Ezra Maldonado DO [Primary Care Provider] - 1-2 days
--- NOTE | 2025-03-22 14:18 | P.PN ---
Subjective Progress Note Date: 03/22/25 This is a 64-year-old male patient for dehydration. The patient has a recent diagnosis of esophageal adenocarcinoma. The patient was unable to take any form of oral solid or liquid and the patient was hospitalized due to failure to thrive. Noted this patient has been having progressive worsening in dyspnea along with weight loss over the past 3 months. CAT scan of the abdomen and pelvis showed no suspicious abnormalities. EGD showed a ulcerated distal esophageal mass around 36 to 41 cm from the incisors with significant luminal narrowing and the biopsy was consistent with poorly differentiated adenocarcinoma. CK7, CDX2 were positive. CEA level is at 5.1. The patient has no other medical problems or comorbidities. No reported aspiration. No chest pain. He is feeling better after receiving IV fluids. The white cell count is 4.6 with a hemoglobin 15.1 and platelet count of 290. BUN 33 with a creatinine of 1.1. Sodium level 142 and glucose levels at 125. The patient is scheduled t o undergo a PET/CT on 04/01/2025. Awaiting oncology consultation. Will need a surgical consultation to secure a feeding tube and this will largely depend on the potential for surgical plan at a later stage post completing his staging. The patient is seen today March 22, 2025 in follow-up on the regular medical floor. He is currently sitting up in bed. Awake and alert in no acute distress. Maintaining good O2 saturations in the 90s on room air. He has been afebrile. Hemodynamically stable. He is currently tolerating a full liquid diet. CT scan of the chest reveals a distal esophageal carcinoma characterized by circumferential soft tissue thickening. This may extend to the GE junction and questionably into the gastric cardia spanning 5 cm. There are 2 enlarged lower paraesophageal lymph nodes measuring up to 1.9 cm. Additional gastrohepatic ligament adenopathy in the upper abdomen measuring up to 2.5 cm. White count 4.4. Hemoglobin 14.5. Platelets 286. Sodium 145. Potassium 4.4. Bicarb 29. BUN 26. Creatinine 1.2. Glucose 109. Objective - Vital Signs Vital signs: Vital Signs Temp 98.7 F 03/22/25 12:16 Pulse 83 03/22/25 12:16 Resp 18 03/22/25 12:16 BP 110/73 03/22/25 12:16 Pulse Ox 97 03/22/25 12:16 FiO2 Intake & Output 03/21/25 03/22/25 03/22/25 18:59 06:59 18:59 Weight 58.967 kg Other: Voiding Method Toilet - Exam GENERAL EXAM: Alert, very pleasant 64-year-old male, on room air oxygen, fairly comfortable in no apparent distress. HEAD: Normocephalic. EYES: Normal reaction of pupils, equal size. NOSE: Clear with pink turbinates. THROAT: No erythema or exudates. NECK: No masses, no JVD. CHEST: No chest wall deformity. LUNGS: Equal air entry with no crackles, wheeze, rhonchi or dullness. CVS: S1 and S2 normal with no audible murmur, regular rhythm. ABDOMEN: No hepatosplenomegaly, normal bowel sounds, no guarding or rigidity. SPINE: No scoliosis or deformity SKIN: No rashes CENTRAL NERVOUS SYSTEM: No focal deficits, tone is normal in all 4 extremities. EXTREMITIES: There is no peripheral edema. No clubbing, no cyanosis. Peripheral pulses are intact. - Labs CBC & Chem 7: 03/22/25 06:14 03/22/25 06:14 Labs: Abnormal Lab Results - Last 24 Hours (Table) 03/22/25 03/22/25 03/22/25 Range/Units 04:39 06:14 06:14 WBC 4.49 L (4.50-10.00) X 10*3/uL Eosinophils # 0 L (0.04-0.35) X 10*3/uL BUN/Creatinine Ratio 21.58 H (12.00-20.00) Ratio Total Bilirubin 1.8 H (0.3-1.2) mg/dL Total Protein 6.1 L (6.2-8.2) g/dL Urine Protein Trace H (Negative) Urine Ketones 1+ H (Negative) Urine Mucus Many H (None) /hpf Assessment and Plan Assessment: Esophageal adenocarcinoma with secondary dysphagia and failure to thrive. The p atient was hospitalized accordingly as the patient was rapidly losing weight and he was getting progressively more dehydrated, unable to keep in any form of solids or liquids. He has lost approximately 50 pounds over the past 3 months. Staging is in progress. PET scan will be needed as this is scheduled to be done on 04/01/2025. Patient may benefit from a feeding tube, likely to be a J-tube especially if surgery on the distal esophagus and the stomach is being contemplated at a later stage. CT scan of the chest reveals a distal esophageal carcinoma characterized by circumferential soft tissue thickening. This may extend to the GE junction and questionably into the gastric cardia spanning 5 cm. There are 2 enlarged lower paraesophageal lymph nodes measuring up to 1.9 cm. Additional gastrohepatic ligament adenopathy in the upper abdomen measuring up to 2.5 cm. Dysphagia secondary to above Rapid weight loss secondary to above BPH Plan: The patient was seen and evaluated CT scan of the chest, labs and medications reviewed He had been seen and evaluated by surgical services Recommendations are for transfer to [facility] Arrangements are being made for possible transfer today if a bed is available The patient, and his brother who is at the bedside, are agreeable to the plan I have personally seen and examined the patient, performed the documentation and the assessment and plan as written. Number of minutes spent on the visit: 10. Dictation was produced using [employer] dictation software. Please excuse any grammatical, word or spelling errors.
--- NOTE | 2025-03-22 16:38 | P.PN ---
Subjective Progress Note Date: 03/22/25 No acute events overnight. C/o dysphagia. Surgery consulted for possible peg placement Objective - Vital Signs Vital signs: Vital Signs Temp 98 F 03/22/25 08:09 Pulse 76 03/22/25 08:09 Resp 18 03/22/25 08:09 BP 117/68 03/22/25 08:09 Pulse Ox 98 03/22/25 08:09 FiO2 Intake & Output 03/21/25 03/22/25 03/22/25 18:59 06:59 18:59 Weight 58.967 kg - Constitutional General appearance: Present: average body habitus, no acute distress - EENT Eyes: Present: anicteric sclerae, EOMI ENT: Present: hearing grossly normal - Respiratory Details: breathing is even and unlabored - Cardiovascular Details: skin warm and dry - Gastrointestinal General gastrointestinal: Present: soft. Absent: tenderness - Integumentary Integumentary: Absent: cyanotic, jaundiced - Neurologic Neurologic: Present: CNII-XII intact - Psychiatric Psychiatric: Present: A&O x's 3 - Labs CBC & Chem 7: 03/22/25 06:14 03/22/25 06:14 Labs: Abnormal Lab Results - Last 24 Hours (Table) 03/22/25 03/22/25 03/22/25 Range/Units 04:39 06:14 06:14 WBC 4.49 L (4.50-10.00) X 10*3/uL Eosinophils # 0 L (0.04-0.35) X 10*3/uL BUN/Creatinine Ratio 21.58 H (12.00-20.00) Ratio Total Bilirubin 1.8 H (0.3-1.2) mg/dL Total Protein 6.1 L (6.2-8.2) g/dL Urine Protein Trace H (Negative) Urine Ketones 1+ H (Negative) Urine Mucus Many H (None) /hpf - Imaging and Cardiology CT scan - chest: report reviewed Assessment and Plan (1) Dysphagia Current Visit: Yes Status: Acute Priority: High Code(s): R13.10 - DYSPHAGIA, UNSPECIFIED SNOMED Code(s): 16277327 (2) Esophageal adenocarcinoma Current Visit: Yes Status: Acute Priority: High Code(s): C15.9 - MALIGNANT NEOPLASM OF ESOPHAGUS, UNSPECIFIED SNOMED Code(s): 494116844 Plan: #Esophageal adenocarcinoma - Noted to have progressive dysphagia and 50 to 70 pound weight loss over the past 3 months - CT abdomen/pelvis revealed enlarged prostate with no other acute findings to explain clinical presentation - EGD/colonoscopy on 03/17/2025 revealed ulcerated distal esophageal mass consistent with poorly differentiated adenocarcinoma - He is having progressive weakness due to dysphagia - Discussed obtaining outpatient PET/CT for staging purposes, which is scheduled for April 01, 2025 - Based off of results of PET/CT, further treatment options could then be determined - Biopsy will be sent for NGS/PD-L1 - As he has a first-degree relative with his father having had pancreatic cancer, he does qualify for genetic testing. This was discussed on today's visit with the implications of genetic testing also discussed. Following discussion, he was agreeable to proceed with testing. We will arrange for germline genetic testing on outpatient follow-up in the clinic - General surgery consulted. Agree with J tube placement vs a PEG tube. - CT chest ordered by surgery team, showing distal esophageal carcinoma characterized by circumferential soft tissue thickening. Which may extend to the GE junction and questionably into the gastric cardia spanning 5 cm. 2 enlarged lower paraesophageal lymph nodes measuring up to 1.9 cm. With additional gastrohepatic ligament adenopathy in the upper abdomen measuring up to 2.5 cm Surgery has spoken to GI at [facility] and they would like to see patient on c onsult to further discuss management and possible esophageal stenting vs J tube placement. Further discussed case with admitting team and plan is to transfer to [facility]. Patient may be able to obtain PET/CT while inpatient Will schedule clinic follow-up upon discharge
--- NOTE | 2025-03-23 11:18 | P.PN ---
Subjective Progress Note Date: 03/23/25 This is a 64-year-old male patient for dehydration. The patient has a recent diagnosis of esophageal adenocarcinoma. The patient was unable to take any form of oral solid or liquid and the patient was hospitalized due to failure to thrive. Noted this patient has been having progressive worsening in dyspnea along with weight loss over the past 3 months. CAT scan of the abdomen and pelvis showed no suspicious abnormalities. EGD showed a ulcerated distal esophageal mass around 36 to 41 cm from the incisors with significant luminal narrowing and the biopsy was consistent with poorly differentiated adenocarcinoma. CK7, CDX2 were positive. CEA level is at 5.1. The patient has no other medical problems or comorbidities. No reported aspiration. No chest pain. He is feeling better after receiving IV fluids. The white cell count is 4.6 with a hemoglobin 15.1 and platelet count of 290. BUN 33 with a creatinine of 1.1. Sodium level 142 and glucose levels at 125. The patient is scheduled t o undergo a PET/CT on 04/01/2025. Awaiting oncology consultation. Will need a surgical consultation to secure a feeding tube and this will largely depend on the potential for surgical plan at a later stage post completing his staging. The patient is seen today March 22, 2025 in follow-up on the regular medical floor. He is currently sitting up in bed. Awake and alert in no acute distress. Maintaining good O2 saturations in the 90s on room air. He has been afebrile. Hemodynamically stable. He is currently tolerating a full liquid diet. CT scan of the chest reveals a distal esophageal carcinoma characterized by circumferential soft tissue thickening. This may extend to the GE junction and questionably into the gastric cardia spanning 5 cm. There are 2 enlarged lower paraesophageal lymph nodes measuring up to 1.9 cm. Additional gastrohepatic ligament adenopathy in the upper abdomen measuring up to 2.5 cm. White count 4.4. Hemoglobin 14.5. Platelets 286. Sodium 145. Potassium 4.4. Bicarb 29. BUN 26. Creatinine 1.2. Glucose 109. The patient is seen today March 23, 2025 in follow-up on the regular medical floor. He is awake and alert in no acute distress. He is resting fairly comfortably in bed. Maintaining good O2 saturations in the 90s on room air. He is afebrile. Hemodynamically stable. He is tolerating a full liquid diet. He has D5 and half-normal saline with 20 of KCl at 125 mL/h. No new labs today. Awaiting transfer to [facility] once a bed is available Objective - Vital Signs Vital signs: Vital Signs Temp 98.2 F 03/23/25 08:00 Pulse 73 03/23/25 08:00 Resp 19 03/23/25 08:00 BP 135/83 03/23/25 08:00 Pulse Ox 99 03/23/25 08:00 FiO2 Intake & Output 03/22/25 03/23/25 03/23/25 18:59 06:59 18:59 Weight 58.967 kg Other: Voiding Method Toilet Toilet # Voids 2 2 # Bowel Movements 1 - Exam GENERAL EXAM: Alert, pleasant 64-year-old male, on room air oxygen, comfortable in no apparent distress. HEAD: Normocephalic. EYES: Normal reaction of pupils, equal size. NOSE: Clear with pink turbinates. THROAT: No erythema or exudates. NECK: No masses, no JVD. CHEST: No chest wall deformity. LUNGS: Equal air entry with no crackles, wheeze, rhonchi or dullness. CVS: S1 and S2 normal with no audible murmur, regular rhythm. ABDOMEN: No hepatosplenomegaly, normal bowel sounds, no guarding or rigidity. SPINE: No scoliosis or deformity SKIN: No rashes CENTRAL NERVOUS SYSTEM: No focal deficits, tone is normal in all 4 extremities. EXTREMITIES: There is no peripheral edema. No clubbing, no cyanosis. Peripheral pulses are intact. - Labs CBC & Chem 7: 03/22/25 06:14 03/22/25 06:14 Labs: Abnormal Lab Results - Last 24 Hours (Table) 03/22/25 03/22/25 Range/Units 06:14 06:14 WBC 4.49 L (4.50-10.00) X 10*3/uL Eosinophils # 0 L (0.04-0.35) X 10*3/uL BUN/Creatinine Ratio 21.58 H (12.00-20.00) Ratio Total Bilirubin 1.8 H (0.3-1.2) mg/dL Total Protein 6.1 L (6.2-8.2) g/dL Assessment and Plan Assessment: Esophageal adenocarcinoma with secondary dysphagia and failure to thrive. The patient was hospitalized accordingly as the patient was rapidly losing weight and he was getting progressively more dehydrated, unable to keep in any form of solids or liquids. He has lost approximately 50 pounds over the past 3 months. Staging is in progress. PET scan will be needed as this is scheduled to be done on 04/01/2025. Patient may benefit from a feeding tube, likely to be a J-tube especially if surgery on the distal esophagus and the stomach is being contemplated at a later stage. CT scan of the chest reveals a distal esophageal carcinoma characterized by circumferential soft tissue thickening. This may extend to the GE junction and questionably into the gastric cardia spanning 5 cm. There are 2 enlarged lower paraesophageal lymph nodes measuring up to 1.9 cm. Additional gastrohepatic ligament adenopathy in the upper abdomen measuring up to 2.5 cm. Dysphagia secondary to above Rapid weight loss secondary to above BPH Plan: The patient was seen and evaluated Currently stable and on room air oxygen Medications reviewed Tolerating a full liquid diet Awaiting transfer to [facility] This patient was seen independently by the pulmonary nurse practitioner addressing pulmonary issues I have personally seen and examined the patient, performed the documentation and the assessment and plan as written. Number of minutes spent on the visit: 24. Dictation was produced using [employer] dictation software. Please excuse any grammatical, word or spelling errors.
--- NOTE | 2025-03-23 14:04 | P.PN ---
Subjective Progress Note Date: 03/23/25 Principal diagnosis: Esophageal cancer with malnutrition Patient feeling slightly better today. Thinks the IV hydration has helped. He is tolerating sips of liquids. Transfer was accepted at [facility] just waiting for bed assignment. No vomiting. Objective - Vital Signs Vital signs: Vital Signs Temp 97.9 F 03/23/25 13:27 Pulse 63 03/23/25 13:27 Resp 19 03/23/25 13:27 BP 124/79 03/23/25 13:27 Pulse Ox 99 03/23/25 13:27 FiO2 Intake & Output 03/22/25 03/23/25 03/23/25 18:59 06:59 18:59 Weight 58.967 kg Other: Voiding Method Toilet Toilet # Voids 2 2 # Bowel Movements 1 - Exam Abdomen: Soft, nontender, nondistended - Labs CBC & Chem 7: 03/22/25 06:14 03/22/25 06:14 Assessment and Plan (1) Esophageal adenocarcinoma Narrative/Plan: 64-year-old male with recent diagnosis of esophageal cancer. Patient with dysphagia and associated malnutrition. Await bed assignment at [facility]. If it appears there is going to be any significant delay will consider PICC line placement for TPN. Current Visit: Yes Status: Acute Priority: High Code(s): C15.9 - MALIGNANT NEOPLASM OF ESOPHAGUS, UNSPECIFIED SNOMED Code(s): 269460705
--- NOTE | 2025-03-23 16:07 | P.PN ---
Subjective Progress Note Date: 03/23/25 64 year old M with PMH of esophageal adenocarcinoma presents to the ED for failure to thrive. He reports losing around 70 pounds over the past 3 months. He reports difficulty swallowing. He denies any headache, LE edema, N/V, fever or chills, cough, chest pain, SOB, palpitations, changes in urination or bowel habits. He is agreeable for PEG tube. In the ED he underwent extensive evaluation. BP 124/84, HR 83, T 97.9F, RR 18, 98% on RA. CBC, CMP significant for K 3.4, BUN 33, glu 125, T. Bili 2.8. Mag 2. EKG NSR. CXR no acute process. Patient is admitted for further workup and management. 03/22 Patient was seen and examined. No complaints. Underwent CT chest showing esophageal AC extending to the GE junction and possibly the gastric cardia spanning 5 cm with enlarged paraesophageal LAD. CBC and CMP significant for WBC 4.49, BUN/Cr 21.58, T. Bili 1.8, total protein 6.1. 03/23 Patient was seen and examined. No complaints. Accepted to [facility] pending bed availability. Plans to start TPN in the meantime for nutrition. General: no distress, appears at stated age Derm: warm, dry Head: atraumatic, normocephalic, symmetric Mouth: no lip lesion, mucus membranes moist Cardiovascular: good distal perfusion in all 4 extremities Lungs: breathing comfortably, no accessory muscle use Ext: no gross muscle atrophy, no edema, no contractures Neuro: No focal neurologic deficits. Psych: Alert and oriented. Based on my assessment of this patient, this patient meets a high complexity level of care. Dysphagia and FTT secondary to esophageal adenoCA: Aspiration precautions and elevated HOB. Oncology and Surgery consulted. Prerenal azotemia likely due to dehydration: Continue D5 1/2 NS with KCl 20 meq at 125 cc/hr. Hyperbilirubinemia: Unknow etiology. Repeat CMP in the AM. Resolved: Hypokalemia CODE STATUS: FULL CODE DVT Prophylaxis: SCD GI Prophylaxis: Designated medical POA if patient is not able to make medical decisions for themselves: Brother. I have reviewed the following it architecture consultant notes: Surgery, Pulm note. I have reviewed the results of the following tests: I have ordered the following tests: I have discussed the care of this patient with the following independent historian: ADALID I have independently interpreted the following test below: I have discussed the management of this patient with the following physician: Objective - Vital Signs Vital signs: Vital Signs Temp 97.9 F 03/23/25 13:27 Pulse 63 03/23/25 13:27 Resp 19 03/23/25 13:27 BP 124/79 03/23/25 13:27 Pulse Ox 99 03/23/25 13:27 FiO2 Intake & Output 03/22/25 03/23/25 03/23/25 18:59 06:59 18:59 Weight 58.967 kg 58.967 kg Other: Voiding Method Toilet Toilet # Voids 2 2 # Bowel Movements 1 - Labs CBC & Chem 7: 03/22/25 06:14 03/22/25 06:14
--- NOTE | 2025-03-24 11:20 | P.PN ---
Subjective Progress Note Date: 03/24/25 This is a 64-year-old male patient for dehydration. The patient has a recent diagnosis of esophageal adenocarcinoma. The patient was unable to take any form of oral solid or liquid and the patient was hospitalized due to failure to thrive. Noted this patient has been having progressive worsening in dyspnea along with weight loss over the past 3 months. CAT scan of the abdomen and pelvis showed no suspicious abnormalities. EGD showed a ulcerated distal esophageal mass around 36 to 41 cm from the incisors with significant luminal narrowing and the biopsy was consistent with poorly differentiated adenocarcinoma. CK7, CDX2 were positive. CEA level is at 5.1. The patient has no other medical problems or comorbidities. No reported aspiration. No chest pain. He is feeling better after receiving IV fluids. The white cell count is 4.6 with a hemoglobin 15.1 and platelet count of 290. BUN 33 with a creatinine of 1.1. Sodium level 142 and glucose levels at 125. The patient is scheduled t o undergo a PET/CT on 04/01/2025. Awaiting oncology consultation. Will need a surgical consultation to secure a feeding tube and this will largely depend on the potential for surgical plan at a later stage post completing his staging. The patient is seen today March 22, 2025 in follow-up on the regular medical floor. He is currently sitting up in bed. Awake and alert in no acute distress. Maintaining good O2 saturations in the 90s on room air. He has been afebrile. Hemodynamically stable. He is currently tolerating a full liquid diet. CT scan of the chest reveals a distal esophageal carcinoma characterized by circumferential soft tissue thickening. This may extend to the GE junction and questionably into the gastric cardia spanning 5 cm. There are 2 enlarged lower paraesophageal lymph nodes measuring up to 1.9 cm. Additional gastrohepatic ligament adenopathy in the upper abdomen measuring up to 2.5 cm. White count 4.4. Hemoglobin 14.5. Platelets 286. Sodium 145. Potassium 4.4. Bicarb 29. BUN 26. Creatinine 1.2. Glucose 109. The patient is seen today March 23, 2025 in follow-up on the regular medical floor. He is awake and alert in no acute distress. He is resting fairly comfortably in bed. Maintaining good O2 saturations in the 90s on room air. He is afebrile. Hemodynamically stable. He is tolerating a full liquid diet. He has D5 and half-normal saline with 20 of KCl at 125 mL/h. No new labs today. Awaiting transfer to [facility] once a bed is available The patient is seen today March 24, 2025 in follow-up on the regular medical floor. He is currently sitting up in bed. Awake and alert in no acute distress. He is maintaining good O2 saturations in the 90s on room air. He has been afebrile. Hemodynamically stable. He still is only able to swallow 1 or 2 sips at a time without having difficulty for any more than that. He remains on D5 and a half normal saline with 20 of KCl at 125 mL/h. He is still not assigned a bed at [facility]. The plan will be for possible PICC line placement today and initiation of TPN for nutritional support. He is having difficulty swallowing Pepcid. He has been initiated on IV Protonix. Objective - Vital Signs Vital signs: Vital Signs Temp 98.1 F 03/24/25 07:28 Pulse 68 03/24/25 07:28 Resp 18 03/24/25 07:28 BP 140/84 03/24/25 07:28 Pulse Ox 96 03/24/25 07:28 FiO2 Intake & Output 03/23/25 03/24/25 03/24/25 18:59 06:59 18:59 Intake Total 1760 Balance 1760 Weight 58.967 kg Intake: Oral 1760 Other: Voiding Method Toilet # Voids 3 2 # Bowel Movements 1 - Exam GENERAL EXAM: Alert, very pleasant 64-year-old male, on room air oxygen, only able to take 1 or 2 sips at a time, in no apparent distress. HEAD: Normocephalic. EYES: Normal reaction of pupils, equal size. NOSE: Clear with pink turbinates. THROAT: No erythema or exudates. NECK: No masses, no JVD. CHEST: No chest wall deformity. LUNGS: Equal air entry with no crackles, wheeze, rhonchi or dullness. CVS: S1 and S2 normal with no audible murmur, regular rhythm. ABDOMEN: No hepatosplenomegaly, normal bowel sounds, no guarding or rigidity. SPINE: No scoliosis or deformity SKIN: No rashes CENTRAL NERVOUS SYSTEM: No focal deficits, tone is normal in all 4 extremities. EXTREMITIES: There is no peripheral edema. No clubbing, no cyanosis. Peripheral pulses are intact. - Labs CBC & Chem 7: 03/22/25 06:14 03/22/25 06:14 Assessment and Plan Assessment: Esophageal adenocarcinoma with secondary dysphagia and failure to thrive. The patient was hospitalized accordingly as the patient was rapidly losing weight and he was getting progressively more dehydrated, unable to keep in any form of solids or liquids. He has lost approximately 50 pounds over the past 3 months. Staging is in progress. PET scan will be needed as this is scheduled to be done on 04/01/2025. Patient may benefit from a feeding tube, likely to be a J-tube especially if surgery on the distal esophagus and the stomach is being contemplated at a later stage. CT scan of the chest reveals a distal esophageal carcinoma characterized by circumferential soft tissue thickening. This may extend to the GE junction and questionably into the gastric cardia spanning 5 cm. There are 2 enlarged lower paraesophageal lymph nodes measuring up to 1.9 cm. Additional gastrohepatic ligament adenopathy in the upper abdomen measuring up to 2.5 cm. Dysphagia secondary to above. Only able to manage 1 or 2 sips at a time. Plan is for PICC line placement and to be initiated on TPN Rapid weight loss secondary to above BPH Plan: The patient was seen and evaluated Currently stable and on room air oxygen Medications reviewed Only able to tolerate 1 or 2 sips Difficulty swallowing medication Initiated on IV Protonix Plan is for PICC line placement Plan is for TPN to be initiated Still awaiting transfer to [facility] This patient was seen independently by the pulmonary nurse practitioner addressing pulmonary issues I have personally seen and examined the patient, performed the documentation and the assessment and plan as written. Number of minutes spent on the visit: 25. Dictation was produced using Me[employer] software. Please excuse any grammatical, word or spelling errors.
--- NOTE | 2025-03-24 11:30 | P.BASOAP ---
Subjective Progress Note Date: 03/24/25 Principal diagnosis: Esophageal cancer with malnutrition Patient doing about the same. Had some issues with a oral medication. Still waiting for bed availability at [facility]. PICC line being placed today. Objective - Vital Signs Vital signs: Vital Signs Temp 98.1 F 03/24/25 07:28 Pulse 68 03/24/25 07:28 Resp 18 03/24/25 07:28 BP 140/84 03/24/25 07:28 Pulse Ox 96 03/24/25 07:28 FiO2 Intake & Output 03/23/25 03/24/25 03/24/25 18:59 06:59 18:59 Intake Total 1760 Balance 1760 Weight 58.967 kg Intake: Oral 1760 Other: Voiding Method Toilet # Voids 3 2 # Bowel Movements 1 - Exam Abdomen: Soft, nontender, nondistended - Labs CBC & Chem 7: 03/22/25 06:14 03/22/25 06:14 Assessment/Plan (1) Esophageal adenocarcinoma Narrative/Plan: 64-year-old male with esophageal cancer and malnutrition. Begin TPN. Await transfer to [facility] for evaluation regarding esophageal stent versus J-tube placement. Plan: Date: 03/22/25 Initial Weight: Initial BMI: Current Weight: 58.967 kg Current BMI: 20.3 Type of Surgery: Total Volume in Band: Previous Volume: Volume Removed: Volume Added: Band Size:
[2025-03-24] MEDS: PANTOPRAZOLE 40 MG/10 ML VIAL IVP SCH (12:30)
[2025-03-24 15:07] LABS: Ionized Calcium 4.7 mg/dL (4.5-5.3)
[2025-03-24 15:11] LABS: African American GFR (CKD) >90 (>60 ml/min/1.73 sqM); Anion Gap 5 mmol/L; Blood Urea Nitrogen 6 mg/dL (9-20); Carbon Dioxide 29 mmol/L (22-30); Chloride 107 mmol/L (98-107); Glucose 121 mg/dL (74-99); Magnesium 1.8 mg/dL (1.6-2.3); Non-African American GFR(CKD) 83 (>60 ml/min/1.73 sqM); Phosphorus 3.6 mg/dL (2.5-4.5); Sodium 141 mmol/L (137-145)
[2025-03-24] MEDS: MVI, ADULT NO.4 WITH VIT K 10 ML, TRACE (CONC-1ML/DOSE) 1 ML in AMINO ACID 5%-D15W+LYTE... IV SCH (16:28)
[2025-03-24 17:58] LABS: Glucose,Whole Blood 111 mg/dL (70-110)
--- NOTE | 2025-03-24 18:00 | P.PN ---
Subjective Progress Note Date: 03/24/25 No acute events overnight. C/o dysphagia. Plan for transfer [facility] for GI evaluation, transfer still pending. PICC line being placed for TPN Objective - Vital Signs Vital signs: Vital Signs Temp 98.6 F 03/24/25 12:07 Pulse 68 03/24/25 12:07 Resp 18 03/24/25 12:07 BP 131/81 03/24/25 12:07 Pulse Ox 97 03/24/25 12:07 FiO2 Intake & Output 03/23/25 03/24/25 03/24/25 18:59 06:59 18:59 Intake Total 1760 Balance 1760 Weight 58.967 kg Intake: Oral 1760 Other: Voiding Method Toilet # Voids 3 2 1 # Bowel Movements 1 - Constitutional General appearance: Present: average body habitus, no acute distress - EENT Eyes: Present: anicteric sclerae, EOMI ENT: Present: hearing grossly normal - Respiratory Details: breathing is even and unlabored - Cardiovascular Details: skin warm and dry - Integumentary Integumentary: Absent: cyanotic, jaundiced - Neurologic Neurologic: Present: CNII-XII intact - Psychiatric Psychiatric: Present: A&O x's 3 - Labs CBC & Chem 7: 03/22/25 06:14 03/24/25 14:34 Labs: Abnormal Lab Results - Last 24 Hours (Table) 03/24/25 Range/Units 14:34 BUN 6 L (9-20) mg/dL Glucose 121 H (74-99) mg/dL Assessment and Plan (1) Dysphagia Current Visit: Yes Status: Acute Priority: High Code(s): R13.10 - DYSPHAGI A, UNSPECIFIED SNOMED Code(s): 68027479 (2) Esophageal adenocarcinoma Current Visit: Yes Status: Acute Priority: High Code(s): C15.9 - MALIGNANT NEOPLASM OF ESOPHAGUS, UNSPECIFIED SNOMED Code(s): 513071013 Plan: #Esophageal adenocarcinoma - Noted to have progressive dysphagia and 50 to 70 pound weight loss over the past 3 months - CT abdomen/pelvis revealed enlarged prostate with no other acute findings to explain clinical presentation - EGD/colonoscopy on 03/17/2025 revealed ulcerated distal esophageal mass consistent with poorly differentiated adenocarcinoma - He is having progressive weakness due to dysphagia - Discussed obtaining outpatient PET/CT for staging purposes, which is scheduled for April 01, 2025 - Based off of results of PET/CT, further treatment options could then be determined - Biopsy will be sent for NGS/PD-L1 - As he has a first-degree relative with his father having had pancreatic cancer, he does qualify for genetic testing. This was discussed on today's visit with the implications of genetic testing also discussed. Following discussion, he was agreeable to proceed with testing. We will arrange for germline genetic testing on outpatient follow-up in the clinic - General surgery consulted. Agree with J tube placement vs a PEG tube. - CT chest ordered by surgery team, showing distal esophageal carcinoma characterized by circumferential soft tissue thickening. Which may extend to the GE junction and questionably into the gastric cardia spanning 5 cm. 2 enlarged lower paraesophageal lymph nodes measuring up to 1.9 cm. With additional gastrohepatic ligament adenopathy in the upper abdomen measuring up to 2.5 cm Surgery has spoken to GI at [facility] and they would like to see patient on consult to further discuss management and possible esophageal stenting vs J tube placement. Further discussed case with admitting team and plan is to transfer to [facility]. Transfer still pending, awaiting bed availability. Patient may be able to obtain PET/CT while inpatient at , if not will proceed with scheduled PET on 04/01 -PICC line placed today so TPN can be started -Clinic follow-up upon discharge
--- NOTE | 2025-03-24 18:14 | P.PN ---
Subjective Progress Note Date: 03/24/25 64 year old M with PMH of esophageal adenocarcinoma presents to the ED for failure to thrive. He reports losing around 70 pounds over the past 3 months. He reports difficulty swallowing. He denies any headache, LE edema, N/V, fever or chills, cough, chest pain, SOB, palpitations, changes in urination or bowel habits. He is agreeable for PEG tube. In the ED he underwent extensive evaluation. BP 124/84, HR 83, T 97.9F, RR 18, 98% on RA. CBC, CMP significant for K 3.4, BUN 33, glu 125, T. Bili 2.8. Mag 2. EKG NSR. CXR no acute process. Patient is admitted for further workup and management. 03/22 Patient was seen and examined. No complaints. Underwent CT chest showing esophageal AC extending to the GE junction and possibly the gastric cardia spanning 5 cm with enlarged paraesophageal LAD. CBC and CMP significant for WBC 4.49, BUN/Cr 21.58, T. Bili 1.8, total protein 6.1. 03/23 Patient was seen and examined. No complaints. Accepted to [facility] pending bed availability. Plans to start TPN in the meantime for nutrition. 03/24 Patient was seen and examined. No complaints. Awaiting bed at [facility]. Case discussed with Dr. Ramos. BMP shows BUN 6, glu 121. Mag 1.8. Phos 3.6. Ionized Ca 4.7. General: no distress, appears at stated age Derm: warm, dry Head: atraumatic, normocephalic, symmetric Mouth: no lip lesion, mucus membranes moist Cardiovascular: good distal perfusion in all 4 extremities Lungs: breathing comfortably, no accessory muscle use Ext: no gross muscle atrophy, no edema, no contractures Neuro: No focal neurologic deficits. Psych: Alert and oriented. Based on my assessment of this patient, this patient meets a high complexity level of care. Dysphagia and FTT secondary to esophageal adenoCA: Initial TPN. Monitor CMP, Phos, Mag, Ca while on TPN. Aspiration precautions and elevated HOB. Oncology and Surgery on board. Hyperbilirubinemia: Unknow etiology. Resolved: Hypokalemia, Prerenal azotemia CODE STATUS: FULL CODE DVT Prophylaxis: SCD GI Prophylaxis: Designated medical POA if patient is not able to make medical decisions for themselves: Brother. I have reviewed the following documentation consultant notes: Surgery, Pulm, Onc note. I have reviewed the results of the following tests: BMP. Mag. Phos. Ionized Ca. I have ordered the following tests: I have discussed the care of this patient with the following independent historian: RN I have independently interpreted the following test below: I have discussed the management of this patient with the following physician: Dr. Ramos regarding possible alternatives. Objective - Vital Signs Vital signs: Vital Signs Temp 98.6 F 03/24/25 12:07 Pulse 68 03/24/25 12:07 Resp 18 03/24/25 12:07 BP 131/81 03/24/25 12:07 Pulse Ox 97 03/24/25 12:07 FiO2 Intake & Output 03/23/25 03/24/25 03/24/25 18:59 06:59 18:59 Intake Total 1760 Balance 1760 Weight 58.967 kg Intake: Oral 1760 Other: Voiding Method Toilet # Voids 3 2 1 # Bowel Movements 1 - Labs CBC & Chem 7: 03/22/25 06:14 03/24/25 14:34 Labs: Abnormal Lab Results - Last 24 Hours (Table) 03/24/25 03/24/25 Range/Units 14:34 17:57 BUN 6 L (9-20) mg/dL Glucose 121 H (74-99) mg/dL POC Glucose (mg/dL) 111 H (70-110) mg/dL
[2025-03-25 00:04] LABS: Glucose,Whole Blood 121 mg/dL (70-110)
[2025-03-25 06:01] LABS: Glucose,Whole Blood 99 mg/dL (70-110)
[2025-03-25 07:04] LABS: ALT 16 U/L (4-49); AST 21 U/L (17-59); African American GFR (CKD) >90 (>60 ml/min/1.73 sqM); Albumin 3.6 g/dL (3.5-5.0); Albumin/Globulin Ratio 1.5; Alkaline Phosphatase 41 U/L (38-126); Anion Gap 7 mmol/L; Blood Urea Nitrogen 9 mg/dL (9-20); Calcium 8.9 mg/dL (8.4-10.2); Carbon Dioxide 29 mmol/L (22-30); Chloride 105 mmol/L (98-107); Globulin 2.4 g/dL; Glucose 105 mg/dL (74-99); Magnesium 1.9 mg/dL (1.6-2.3); Non-African American GFR(CKD) 85 (>60 ml/min/1.73 sqM); Phosphorus 4.4 mg/dL (2.5-4.5); Potassium 3.8 mmol/L (3.5-5.1); Sodium 141 mmol/L (137-145); Total Bilirubin 2.3 mg/dL (0.2-1.3)
[2025-03-25 07:39] VITALS: RESP 14
[2025-03-25] MEDS: FAT EMULSION 20% 250 ML in EMPTY BAG 1 BAG IV SCH (09:22)
[2025-03-25] MEDS: ONDANSETRON 4 MG/2 ML VIAL IVP PRN (09:36)
--- NOTE | 2025-03-25 11:36 | P.PN ---
Subjective Progress Note Date: 03/25/25 64 year old M with PMH of esophageal adenocarcinoma presents to the ED for failure to thrive. He reports losing around 70 pounds over the past 3 months. He reports difficulty swallowing. He denies any headache, LE edema, N/V, fever or chills, cough, chest pain, SOB, palpitations, changes in urination or bowel habits. He is agreeable for PEG tube. In the ED he underwent extensive evaluation. BP 124/84, HR 83, T 97.9F, RR 18, 98% on RA. CBC, CMP significant for K 3.4, BUN 33, glu 125, T. Bili 2.8. Mag 2. EKG NSR. CXR no acute process. Patient is admitted for further workup and management. 03/22 Patient was seen and examined. No complaints. Underwent CT chest showing esophageal AC extending to the GE junction and possibly the gastric cardia spanning 5 cm with enlarged paraesophageal LAD. CBC and CMP significant for WBC 4.49, BUN/Cr 21.58, T. Bili 1.8, total protein 6.1. 03/23 Patient was seen and examined. No complaints. Accepted to [facility] pending bed availability. Plans to start TPN in the meantime for nutrition. 03/24 Patient was seen and examined. No complaints. Awaiting bed at [facility]. Case discussed with Dr. Ramos. BMP shows BUN 6, glu 121. Mag 1.8. Phos 3.6. Ionized Ca 4.7. 03/25 Patient was seen and examined. No complaints. Maintained on TPN. Awaiting bed at [facility]. CMP glu 105, T. Bili 2.3, total protein 6. Phos 4.4. Mag 1.9. General: no distress, appears at stated age Derm: warm, dry Head: atraumatic, normocephalic, symmetric Mouth: no lip lesion, mucus membranes moist Cardiovascular: good distal perfusion in all 4 extremities Lungs: breathing comfortably, no accessory muscle use Ext: no gross muscle atrophy, no edema, no contractures Neuro: No focal neurologic deficits. Psych: Alert and oriented. Based on my assessment of this patient, this patient meets a high complexity level of care. Dysphagia and FTT secondary to esophageal adenoCA: Continue TPN. Monitor CMP, Phos, Mag, Ca while on TPN. Aspiration precautions and elevated HOB. Oncology and Surgery on board. Hyperbilirubinemia: Unknow etiology. Resolved: Hypokalemia, Prerenal azotemia CODE STATUS: FULL CODE DVT Prophylaxis: SCD GI Prophylaxis: Designated medical POA if patient is not able to make medical decisions for themselves: Brother. I have reviewed the following finance consultant notes: Surgery, Pulm, Onc note. I have reviewed the results of the following tests: CMP. Mag. Phos. I have ordered the following tests: Daily CMP, Mag, Phos while on TPN. I have discussed the care of this patient with the following independent historian: I have independently interpreted the following test below: I have discussed the management of this patient with the following physician: Objective - Vital Signs Vital signs: Vital Signs Temp 98.1 F 03/25/25 07:38 Pulse 66 03/25/25 08:00 Resp 14 03/25/25 08:00 BP 121/79 03/25/25 07:38 Pulse Ox 97 03/25/25 07:38 FiO2 Intake & Output 03/24/25 03/25/25 03/25/25 18:59 06:59 18:59 Intake Total 540 Balance 540 Weight 58.967 kg 61.099 kg Intake: Oral 540 Other: Voiding Method Toilet Toilet # Voids 1 2 # Bowel Movements 1 - Labs CBC & Chem 7: 03/22/25 06:14 03/25/25 05:59 Labs: Abnormal Lab Results - Last 24 Hours (Table) 03/24/25 03/24/25 03/25/25 Range/Units 14:34 17:57 00:03 BUN 6 L (9-20) mg/dL Glucose 121 H (74-99) mg/dL POC Glucose (mg/dL) 111 H 121 H (70-110) mg/dL Total Bilirubin (0.2-1.3) mg/dL Total Protein (6.3-8.2) g/dL 03/25/25 Range/Units 05:59 BUN (9-20) mg/dL Glucose 105 H (74-99) mg/dL POC Glucose (mg/dL) (70-110) mg/dL Total Bilirubin 2.3 H (0.2-1.3) mg/dL Total Protein 6.0 L (6.3-8.2) g/dL
--- NOTE | 2025-03-25 11:43 | P.PN ---
Subjective Progress Note Date: 03/25/25 This is a 64-year-old male patient for dehydration. The patient has a recent diagnosis of esophageal adenocarcinoma. The patient was unable to take any form of oral solid or liquid and the patient was hospitalized due to failure to thrive. Noted this patient has been having progressive worsening in dyspnea along with weight loss over the past 3 months. CAT scan of the abdomen and pelvis showed no suspicious abnormalities. EGD showed a ulcerated distal esophageal mass around 36 to 41 cm from the incisors with significant luminal narrowing and the biopsy was consistent with poorly differentiated adenocarcinoma. CK7, CDX2 were positive. CEA level is at 5.1. The patient has no other medical problems or comorbidities. No reported aspiration. No chest pain. He is feeling better after receiving IV fluids. The white cell count is 4.6 with a hemoglobin 15.1 and platelet count of 290. BUN 33 with a creatinine of 1.1. Sodium level 142 and glucose levels at 125. The patient is scheduled t o undergo a PET/CT on 04/01/2025. Awaiting oncology consultation. Will need a surgical consultation to secure a feeding tube and this will largely depend on the potential for surgical plan at a later stage post completing his staging. The patient is seen today March 22, 2025 in follow-up on the regular medical floor. He is currently sitting up in bed. Awake and alert in no acute distress. Maintaining good O2 saturations in the 90s on room air. He has been afebrile. Hemodynamically stable. He is currently tolerating a full liquid diet. CT scan of the chest reveals a distal esophageal carcinoma characterized by circumferential soft tissue thickening. This may extend to the GE junction and questionably into the gastric cardia spanning 5 cm. There are 2 enlarged lower paraesophageal lymph nodes measuring up to 1.9 cm. Additional gastrohepatic ligament adenopathy in the upper abdomen measuring up to 2.5 cm. White count 4.4. Hemoglobin 14.5. Platelets 286. Sodium 145. Potassium 4.4. Bicarb 29. BUN 26. Creatinine 1.2. Glucose 109. The patient is seen today March 23, 2025 in follow-up on the regular medical floor. He is awake and alert in no acute distress. He is resting fairly comfortably in bed. Maintaining good O2 saturations in the 90s on room air. He is afebrile. Hemodynamically stable. He is tolerating a full liquid diet. He has D5 and half-normal saline with 20 of KCl at 125 mL/h. No new labs today. Awaiting transfer to [facility] once a bed is available The patient is seen today March 24, 2025 in follow-up on the regular medical floor. He is currently sitting up in bed. Awake and alert in no acute distress. He is maintaining good O2 saturations in the 90s on room air. He has been afebrile. Hemodynamically stable. He still is only able to swallow 1 or 2 sips at a time without having difficulty for any more than that. He remains on D5 and a half normal saline with 20 of KCl at 125 mL/h. He is still not assigned a bed at [facility]. The plan will be for possible PICC line placement today and initiation of TPN for nutritional support. He is having difficulty swallowing Pepcid. He has been initiated on IV Protonix. The patient is seen today March 25, 2025 in follow-up on the regular medical floor. He is awake and alert in no acute distress. Sitting up in bed. He remains afebrile. Hemodynamically stable. Maintaining good O2 saturations in the 90s on room air oxygen. He did receive a right upper extremity PICC line yesterday. He has been initiated on TPN currently at 30 mL/h with a goal of 60 mL/h. Sodium 141. Potassium 3.8. Bicarb 29. BUN 9. Creatinine 0.95. Glucose 105. Objective - Vital Signs Vital signs: Vital Signs Temp 98.1 F 03/25/25 07:38 Pulse 66 03/25/25 08:00 Resp 14 03/25/25 08:00 BP 121/79 03/25/25 07:38 Pulse Ox 97 03/25/25 07:38 FiO2 Intake & Output 03/24/25 03/25/25 03/25/25 18:59 06:59 18:59 Intake Total 540 Balance 540 Weight 58.967 kg 61.099 kg Intake: Oral 540 Other: Voiding Method Toilet Toilet # Voids 1 2 # Bowel Movements 1 - Exam GENERAL EXAM: Alert, pleasant 64-year-old male, on room air oxygen, in no apparent distress. HEAD: Normocephalic. EYES: Normal reaction of pupils, equal size. NOSE: Clear with pink turbinates. THROAT: No erythema or exudates. NECK: No masses, no JVD. CHEST: No chest wall deformity. LUNGS: Equal air entry with no crackles, wheeze, rhonchi or dullness. CVS: S1 and S2 normal with no audible murmur, regular rhythm. ABDOMEN: No hepatosplenomegaly, normal bowel sounds, no guarding or rigidity. SPINE: No scoliosis or deformity SKIN: No rashes CENTRAL NERVOUS SYSTEM: No focal deficits, tone is normal in all 4 extremities. EXTREMITIES: Right upper extremity PICC line in place. There is no peripheral edema. No clubbing, no cyanosis. Peripheral pulses are intact. - Labs CBC & Chem 7: 03/22/25 06:14 03/25/25 05:59 Labs: Abnormal Lab Results - Last 24 Hours (Table) 03/24/25 03/24/25 03/25/25 Range/Units 14:34 17:57 00:03 BUN 6 L (9-20) mg/dL Glucose 121 H (74-99) mg/dL POC Glucose (mg/dL) 111 H 121 H (70-110) mg/dL Total Bilirubin (0.2-1.3) mg/dL Total Protein (6.3-8.2) g/dL 03/25/25 Range/Units 05:59 BUN (9-20) mg/dL Glucose 105 H (74-99) mg/dL POC Glucose (mg/dL) (70-110) mg/dL Total Bilirubin 2.3 H (0.2-1.3) mg/dL Total Protein 6.0 L (6.3-8.2) g/dL Assessment and Plan Assessment: Esophageal adenocarcinoma with secondary dysphagia and failure to thrive. The patient was hospitalized accordingly as the patient was rapidly losing weight and he was getting progressively more dehydrated, unable to keep in any form of solids or liquids. He has lost approximately 50 pounds over the past 3 months. Staging is in progress. PET scan will be needed as this is scheduled to be done on 04/01/2025. Patient may benefit from a feeding tube, likely to be a J-tube especially if surgery on the distal esophagus and the stomach is being contempla eli at a later stage. CT scan of the chest reveals a distal esophageal carcinoma characterized by circumferential soft tissue thickening. This may extend to the GE junction and questionably into the gastric cardia spanning 5 cm. There are 2 enlarged lower paraesophageal lymph nodes measuring up to 1.9 cm. Additional gastrohepatic ligament adenopathy in the upper abdomen measuring up to 2.5 cm. Dysphagia secondary to above. PICC line placed 03/24/2025 and initiated on TPN and lipids Rapid weight loss secondary to above BPH Plan: The patient was seen and evaluated Currently stable and on room air oxygen Medications and labs reviewed Continue IV Protonix PICC line placed yesterday TPN and lipids initiated Still awaiting transfer to [facility] This patient was seen independently by the pulmonary nurse practitioner addressing pulmonary issues I have personally seen and examined the patient, performed the documentation and the assessment and plan as written. Number of minutes spent on the visit: 23. Dictation was produced using [employer] dictation software. Please excuse any grammatical, word or spelling errors.
[2025-03-25 12:00] LABS: Glucose,Whole Blood 110 mg/dL (70-110)
--- NOTE | 2025-03-25 13:05 | P.PN ---
Subjective Progress Note Date: 03/25/25 Principal diagnosis: Esophageal cancer with malnutrition Patient doing well today. TPN was started yesterday. Thinks he has a bit more energy. Mild nausea. Some abdominal crampy discomfort. Objective - Vital Signs Vital signs: Vital Signs Temp 98.1 F 03/25/25 07:38 Pulse 66 03/25/25 08:00 Resp 14 03/25/25 08:00 BP 121/79 03/25/25 07:38 Pulse Ox 97 03/25/25 07:38 FiO2 Intake & Output 03/24/25 03/25/25 03/25/25 18:59 06:59 18:59 Intake Total 540 Balance 540 Weight 58.967 kg 61.099 kg Intake: Oral 540 Other: Voiding Method Toilet Toilet # Voids 1 2 # Bowel Movements 1 - Exam Abdomen: Soft, nontender, nondistended - Labs CBC & Chem 7: 03/22/25 06:14 03/25/25 05:59 Labs: Abnormal Lab Results - Last 24 Hours (Table) 03/24/25 03/24/25 03/25/25 Range/Units 14:34 17:57 00:03 BUN 6 L (9-20) mg/dL Glucose 121 H (74-99) mg/dL POC Glucose (mg/dL) 111 H 121 H (70-110) mg/dL Total Bilirubin (0.2-1.3) mg/dL Total Protein (6.3-8.2) g/dL 03/25/25 Range/Units 05:59 BUN (9-20) mg/dL Glucose 105 H (74-99) mg/dL POC Glucose (mg/dL) (70-110) mg/dL Total Bilirubin 2.3 H (0.2-1.3) mg/dL Total Protein 6.0 L (6.3-8.2) g/dL Assessment and Plan (1) Esophageal adenocarcinoma Narrative/Plan: 64-year-old male with malnutrition secondary to esophageal malignancy. Still waiting for bed assignment from [facility]. Options again discussed with patient at length. I will be back on Saturday but will be gone after this afternoon. Will sign off. Please reconsult if needed. Discussed that if bed availability continue to be an issue into next week we would consider proceeding with laparoscopic J-tube placement here locally. Current Visit: Yes Status: Acute Priority: High Code(s): C15.9 - MALIGNANT NEOPLASM OF ESOPHAGUS, UNSPECIFIED SNOMED Code(s): 940940641
[2025-03-25 14:42] VITALS: BMI 21.1
[2025-03-25] MEDS ORDERED: 1: MVI, ADULT NO.4 WITH VIT K 10 ML, TRACE (CONC-1ML/DOSE) 1 ML in AMINO ACID 5%-D15W+LY IV SCH (16:00)
[2025-03-25] MEDS: 1: MVI, ADULT NO.4 WITH VIT K 10 ML, TRACE (CONC-1ML/DOSE) 1 ML, SODIUM CHLORIDE 4MEQ/ML IV SCH (17:10)
[2025-03-25 17:58] LABS: Glucose,Whole Blood 129 mg/dL (70-110)
[2025-03-25 20:24] VITALS: BP 111/70; PULSE 62; TEMP 98.9
--- NOTE | 2025-03-26 14:59 | P.DS ---
Providers Date of admission: 03/21/25 06:37 Expected date of discharge: 03/26/25 Attending physician: Billie Khalil MD Consults: 03/21/25 06:17 Consult Physician Routine Consulting Provider: Rahul Ortega Consult Reason/Comments: esophageal cancer. Dr. Maldonado Patient Do you want consulting provider notified?: Yes 03/21/25 07:22 Consult Physician Routine Consulting Provider: Erlinda Banegas Consult Reason/Comments: Esophageal cancer, recent biopsy Do you want consulting provider notified?: Yes, Notify in am Primary care physician: [facility] Course: 64 year old M with PMH of esophageal adenocarcinoma presents to the ED for failure to thrive. He reports losing around 70 pounds over the past 3 months. He reports difficulty swallowing. He denies any headache, LE edema, N/V, fever or chills, cough, chest pain, SOB, palpitations, changes in urination or bowel habits. He is agreeable for PEG tube. In the ED he underwent extensive evaluation. BP 124/84, HR 83, T 97.9F, RR 18, 98% on RA. CBC, CMP significant for K 3.4, BUN 33, glu 125, T. Bili 2.8. Mag 2. EKG NSR. CXR no acute process. Patient is admitted for further workup and management. 03/22 Patient was seen and examined. No complaints. Underwent CT chest showing esophageal AC extending to the GE junction and possibly the gastric cardia spanning 5 cm with enlarged paraesophageal LAD. CBC and CMP significant for WBC 4.49, BUN/Cr 21.58, T. Bili 1.8, total protein 6.1. 03/23 Patient was seen and examined. No complaints. Accepted to [facility] pending bed availability. Plans to start TPN in the meantime for nutrition. 03/24 Patient was seen and examined. No complaints. Awaiting bed at [facility]. Case discussed with Dr. Ramos. BMP shows BUN 6, glu 121. Mag 1.8. Phos 3.6. Ionized Ca 4.7. 03/25 Patient was seen and examined. No complaints. Maintained on TPN. Awaiting bed at [facility]. CMP glu 105, T. Bili 2.3, total protein 6. Phos 4.4. Mag 1.9. Patient was transferred overnight of 03/25 to [facility]. General: no distress, appears at stated age Derm: warm, dry Head: atraumatic, normocephalic, symmetric Mouth: no lip lesion, mucus membranes moist Cardiovascular: good distal perfusion in all 4 extremities Lungs: breathing comfortably, no accessory muscle use Ext: no gross muscle atrophy, no edema, no contractures Neuro: No focal neurologic deficits. Psych: Alert and oriented. Discharge Diagnosis: Dysphagia and FTT secondary to esophageal adenoCA Hyperbilirubinemia Resolved: Hypokalemia, Prerenal azotemia Patient Condition at Discharge: Stable Plan - Discharge Summary Discharge Rx Participant: Yes New Discharge Prescriptions: No Action Omeprazole Magnesium [PriLOSEC OTC] 20 mg PO DAILY Discharge Medication List Omeprazole Magnesium [PriLOSEC OTC] 20 mg PO DAILY 03/11/25 [History] Follow up Appointment(s)/Referral(s): Ezra Maldonado DO [Primary Care Provider] - 1-2 days
== END 2025-03-25 23:52 | disposition short-term general hospital (02) | DRG 392 ==
LOC: EC 05:59 → 5NMEDONC 06:36 → OBSVTOIN 06:37 → 5NMEDONC 20:09
PROVIDERS: ADMIT Internal Medicine; ATTEND Internal Medicine
PROC: B5181ZA Fluoroscopy of Superior Vena Cava using Low Osmolar Contrast, Guidance (ICD-10-PCS; 2025-03-24)
PROC: B548ZZA Ultrasonography of Superior Vena Cava, Guidance (ICD-10-PCS; 2025-03-24)
PROC: 3E0336Z Introduction of Nutritional Substance into Peripheral Vein, Percutaneous Approach (ICD-10-PCS; 2025-03-24)
PROC: 02HV33Z Insertion of Infusion Device into Superior Vena Cava, Percutaneous Approach (ICD-10-PCS; principal; 2025-03-24 10:05)
DX: R13.10 Dysphagia, unspecified (principal); E46 Unspecified protein-calorie malnutrition; C15.5 Malignant neoplasm of lower third of esophagus; R62.7 Adult failure to thrive; R17 Unspecified jaundice; E86.0 Dehydration; E87.6 Hypokalemia; R59.0 Localized enlarged lymph nodes; Z68.21 Body mass index [BMI] 21.0-21.9, adult; N40.0 Benign prostatic hyperplasia without lower urinary tract symptoms; R11.0 Nausea; Z88.0 Allergy status to penicillin; Z86.0109 Personal history of other colon polyps
CPT/HCPCS: 36415; 36573; 71045; 71260; 80048; 80053; 81001; 82330; 83735; 84100; 84478; 85025; 93005; 96361; 96365; 96366; 99285

== ENCOUNTER → 2025-04-08 | Outpatient (CLI) | payer OTHER ==
--- NOTE | 2025-04-09 14:49 | PE ---
EXAMINATION TYPE: PET CT fusion skull to thigh DATE OF EXAM: 04/08/2025 CLINICAL INDICATION:Male, 64 years old with history of R91.8 abnormal findings lung field; TECHNIQUE: Following the intravenous administration of 12.3 mCi of F-18 FDG, whole body images are performed from the skull base to the Mid thigh. Images are reviewed on the computer in the coronal, axial, and sagittal planes. Reconstructed rotating images are created on independent workstation and reviewed on the computer. A non-contrast CT is performed in conjunction with the PET scan. Glucose level 108r mg/dL CT DLP: 538 mGycm, Automated exposure control for dose reduction was used. COMPARISON: CT 03/01/2023 03/14/2025, PET/CT None, MRI: None FINDINGS: Mediastinal SUV mean is 2.0. Hepatic parenchyma SUV mean is 2.4. SKULL BASE AND NECK: No suspicious radiotracer activity. CHEST, MEDIASTINUM, AND HILAR REGION: * Right paraesophageal lymph node measuring 15 mm grossly 15 mm.r in short axis max SUV 9.6 * Left paratracheal lymph node measuring 19 mm previously 11 mm max SUV 11.9. * Distal esophageal uptake max SUV 16.8 extending into the gastric lumen max SUV 21.5 in the gastric lumen. Overall area measures up to 5.6 cm in caudocranial dimension of uptake. ABDOMEN AND PELVIS: * Gastrohepatic ligament lymph nodes are present max SUV 7.3 measuring 19 mm, previously 15 mm. MUSCULOSKELETAL STRUCTURES: No suspicious radiotracer activity. OTHER CT: Right lower abdominal wall muscle strain max SUV 4.2. IMPRESSION: Gastroesophageal tumor with lymph nodes in the periesophageal region as well as in the gastric hepati c ligament compatible with local metastatic disease. No distant metastatic disease at this time. Findings communicated to Ezra Maldonado DO~[id number] on 04/08/2025 5:[address] Ezra Lockwood. [facility], , 04/09/2025 2:47 PM
== END | disposition home or self-care (01) ==
LOC: RADPETMAIN 06:48
PROVIDERS: ATTEND Internal Medicine Critical Care Medicine
DX: R91.8 Other nonspecific abnormal finding of lung field (principal)
CPT/HCPCS: 78815; A9552